=== PATIENT | male | born 1955 | race Caucasian/White ===

== ENCOUNTER 2017-06-15 10:35 | Inpatient (IN) | payer OTHER ==
[2017-06-15 10:46] VITALS: BMI 16.9
--- NOTE | 2017-06-15 13:45 | HP ---
CIWA Score - CIWA Score Nausea/Vomitin (diarrhea) Muscle Tremors: 4-Moderate,w/Arms Extend Anxiety: 4-Mod. Anxious/Guarded Agitation: 4-Moderately Restless Paroxysmal Sweats: 3 Orientation: 0-Oriented Tacttile Disturbances: 0-None Auditory Disturbances: 0-None Visual Disturbances: 3-Moderate Sensitivity Headache: 0-None Present CIWA-Ar Total Score: 21 Admission ROS BHS - HPI Chief Complaint: 61 years old male with a long hx of alcoholism admitted for detox. Pt has a history of previous detox in 2009. Longest sobriety was for 2 years. Allergies/Adverse Reactions: Allergies Allergy/AdvReac Type Severity Reaction Status Date / Time No Known Allergies Allergy Verified 06/15/17 11:25 History of Present Illness: Alcohol withdrawal Exam Limitations: No Limitations - Ebola screening Have you traveled outside of the country in the last 21 days: No Have you had contact with anyone from an Ebola affected area: No Have you been sick,other than usual withdrawal symptoms: No Do you have a fever: No - Review of Systems Constitutional: Chills, Diaphoresis, Malaise, Night Sweats EENT: reports: Blurred Vision, Tearing Respiratory: reports: Other (Phlegm from smoking) Cardiac: reports: No Symptoms Reported GI: reports: Diarrhea, Poor Appetite, Abdominal cramping : reports: No Symptoms Reported Musculoskeletal: reports: Muscle Weakness Integumentary: reports: Dryness Neuro: reports: Tingling, Tremors Endocrine: reports: Excessive Sweating, Unexplained Weight Loss (Poor diet) Hematology: reports: No Symptoms Reported Psychiatric: reports: Orientated x3, Anxious, Depressed Other Systems: Reviewed and Negative Patient History - Patient Medical History Hx Anemia: Yes Hx Asthma: No Hx Chronic Obstructive Pulmonary Disease (COPD): No Hx Cancer: No Hx Cardiac Disorders: No Hx Congestive Heart Failure: No Hx Hypertension: Yes Hx Hypercholesterolemia: No Hx Pacemaker: No HX Cerebrovascular Accident: No Hx Seizures: No Hx Diabetes: No Hx Gastrointestinal Disorders: No Hx Liver Disease: No Hx Genitourinary Disorders: No Hx Sexually Transmitted Disorders: No Hx Renal Disease (ESRD): No Hx Thyroid Disease: No Hx Human Immunodeficiency Virus (HIV): No (negative 2015) Hx Hepatitis C: Yes (treated with harvoni and undetected) Hx Depression: Yes Hx Suicide Attempt: No Hx Bipolar Disorder: Yes (on meds) Hx Schizophrenia: No - Patient Surgical History Past Surgical History: No - PPD History Previous Implant?: Yes Documented Results: Negative w/o proof PPD to be Administered?: Yes - Reproductive History Patient is a Female of Child Bearing Age (11 -55 yrs old): (Male) - Smoking Cessation Smoking history: Current every day smoker Have you smoked in the past 12 months: Yes Aproximately how many cigarettes per day: 7 Hx Chewing Tobacco Use: No Initiated information on smoking cessation: Yes 'Breaking Loose' booklet given: 06/15/17 - Substance & Tx. History Hx Alcohol Use: Yes Substance Use Type: Alcohol Hx Substance Use Treatment: Yes ( on MMTP at [facility]) - Substances Abused Alcohol Route: Oral Frequency: Daily Amount used: beer(10 cans-24 oz), /vodka (1/2 pint) Age of first use: 15 Date of Last Use: 06/14/17 Family Disease History - Family Disease History Family Disease History: CA: Father (leukemia- ), Other: Mother (Liver cirrhosis- ) Admission Physical Exam [facility] - Vital Signs Vital Signs: Vital Signs - 24 hr 06/15/17 10:44 Temperature 98.3 F Pulse Rate 97 H Respiratory 18 Rate Blood Pressure 129/88 - Physical General Appearance: Yes: No Apparent Distress, Appropriately Dressed, Moderate Distress, Sweating HEENTM: Yes: AYANNA, Nasal Congestion Respiratory: Yes: Lungs Clear, Normal Breath Sounds, No Respiratory Distress Neck: Yes: Supple Breast: Yes: Breast Exam Deferred Cardiology: Yes: Regular Rhythm, Regular Rate, S1, S2 Abdominal: Yes: Normal Bowel Sounds, Non Tender, Soft Genitourinary: Yes: Within Normal Limits Back: Yes: Muscle Spasm Musculoskeletal: Yes: Muscle Pain Extremities: Yes: Normal Inspection Neurological: Yes: Fully Oriented, Alert Integumentary: Yes: Diaphoresis Lymphatic: Yes: Within Normal Limits - Diagnostic (1) Alcohol dependence with uncomplicated withdrawal Current Visit: Yes Status: Acute (2) Methadone maintenance therapy patient Current Visit: Yes Status: Chronic Comment: Patient on MMTP with [facility]. Verified by Ms. Danielle Gamble (3) Hypertension Current Visit: Yes Status: Chronic Qualifiers: Hypertension type: essential hypertension Qualified Code(s): I10 - Essential (primary) hypertension; I10 - Essential (primary) hypertension; I10 - Essential (primary) hypertension (4) Anemia Current Visit: Yes Status: Chronic (5) Hepatitis C Current Visit: Yes Status: Chronic Qualifiers: Hepatic coma status: without hepatic coma Cleared for Admission [facility] - Detox or Rehab [facility] Level of Care: Medically Managed Detox Regimen/Protocol: Librium [facility] Breath Alcohol Content Breath Alcohol Content: 0 Urine Drug Screen - Results Drug Screen Negative: No Urine Drug Screen Results: BZO-Benzodiazepines, MTD-Methadone
[2017-06-15] MEDS ORDERED: METHADONE HCL 10 MG TABLET (FOR DETOX USE ONLY) PO ONE ×2 (14:21→23:00)
[2017-06-15] MEDS ORDERED: guaiFENesin/D-METHORPHAN HB 10 ML UNIT-DOSE CUPS PO PRN (14:21)
[2017-06-15] MEDS ORDERED: MAGNESIUM HYDROX 2400MG/30ML ORAL SUSPENSION 30 ML CUP PO PRN (14:21)
[2017-06-15] MEDS ORDERED: diphenhydrAMINE HCL 50 MG CAPSULE PO PRN (14:21)
[2017-06-15] MEDS ORDERED: ACETAMINOPHEN 325 MG TABLET (FP) PO PRN (14:21)
[2017-06-15] MEDS ORDERED: MENTHOL/PHENOL 1 EACH UD MM PRN (14:21)
[2017-06-15] MEDS ORDERED: MAGNESIUM CITRATE 300 ML BOTTLE PO PRN (14:21)
[2017-06-15] MEDS ORDERED: P-EPHED 60MG/TRIPROLIDI 2.5MG TABLET PO PRN (14:21)
[2017-06-15] MEDS ORDERED: hydrOXYzine PAMOATE 50 MG CAPSULE (FP) PO PRN (14:21)
[2017-06-15] MEDS ORDERED: NICOTINE POLACRILEX 2 MG GUM BUC PRN (14:21)
[2017-06-15] MEDS ORDERED: LOPERAMIDE HCL 2 MG CAPSULE PO PRN (14:21)
[2017-06-15] MEDS ORDERED: IBUPROFEN 400 MG TABLET (FP) PO PRN (14:21)
[2017-06-15] MEDS ORDERED: METHADONE HCL 10 MG TABLET PO ONE (14:47)
[2017-06-15] MEDS ORDERED: PATIENT'S OWN MEDICATION (NON-FORMULARY) (Cholecalciferol (Vitamin D3) [Vitamin D3] 50,000 PO SCH (15:00)
[2017-06-15] MEDS ORDERED: METHADONE 80 MG, METHADONE 10 MG PO ONE (15:00)
[2017-06-15] MEDS ORDERED: METHADONE HCL 10 MG TABLET ONE (15:32)
[2017-06-15] MEDS ORDERED: METHADONE HCL 40 MG DISPERSABLE TABLET ONE (15:33)
[2017-06-15] MEDS: chlordiazePOXIDE HCL 25 MG CAPSULE PO PRN ×2 (15:38→19:44)
[2017-06-15 17:11] LABS: MCH 34.3 pg (25.7-33.7); MCHC 33.6 g/dl (32.0-35.9); MEAN PLT VOLUME 10.4 fl (7.5-11.1); PLATELET COUNT 185 K/MM3 (134-434); WHITE BLOOD COUNT 5.2 K/mm3 (4.0-10.0)
[2017-06-15 17:15] LABS: URINE APPEARANCE CLEAR; URINE BILIRUBIN NEGATIVE (NEGATIVE); URINE BLOOD NEGATIVE (NEGATIVE); URINE COLOR YELLOW; URINE GLUCOSE (UA) NEGATIVE (NEGATIVE); URINE KETONE 1+ (NEGATIVE); URINE NITRITE NEGATIVE (NEGATIVE); URINE PROTEIN NEGATIVE (NEGATIVE); URINE UROBILINOGEN NEGATIVE mg/dL (0.2-1.0)
[2017-06-15] MEDS: chlordiazePOXIDE HCL 25 MG CAPSULE PO SCH ×2 (17:15→22:02)
[2017-06-15 17:24] LABS: ALBUMIN 3.9 g/dl (3.4-5.0); ANION GAP 8 (8-16); CALCIUM 8.9 mg/dL (8.5-10.1); CO2 27 mmol/L (21-32); GLUCOSE,RANDOM 226 mg/dL (74-106); SGPT/ALT 19 U/L (12-78)
[2017-06-15 17:27] LABS: ALK PHOS 84 U/L (45-117); BILIRUBIN,TOTAL 0.7 mg/dL (0.2-1.0); SGOT/AST 23 U/L (15-37); TOT PROT 7.6 g/dl (6.4-8.2)
--- NOTE | 2017-06-15 17:46 | CONSULT ---
[facility] Psychiatric Consult - Data Date of interview: 06/15/17 Admission source: [facility] Identifying data: Readmission to [facility] (patient was at [facility] in 2007) for alcohol and opioid dependence.Patient is single,a father of two,domiciled, unemployed and supported on Public Assistance. Substance Abuse History: Confirmed by patient in this session. Smoking Cessation. Smoking history: Current every day smoker. Have you smoked in the past 12 months: Yes. Aproximately how many cigarettes per day: 7. Hx Chewing Tobacco Use: No. Initiated information on smoking cessation: Yes. 'Breaking Loose' booklet given: 06/15/17. - Substance & Tx. History. Hx Alcohol Use: Yes. Substance Use Type: Alcohol. Hx Substance Use Treatment: Yes ( on MMTP at [facility]). - Substances Abused. Alcohol. Route: Oral. Frequency: Daily. Amount used: beer(10 cans-24 oz), /vodka (1/2 pint). Age of first use: 15. Date of Last Use: 06/14/17 Medical History: Hypertension and hepatitis C (treated). Psychiatric History: Admitted to the psychiatric inpatient service at [facility] years ago.Diagnosed with Bipolar Disorder.Prescribed seroquel 50 mg po bid + remeron 30 mg/hs.Mr Aquino gets psychiatric OPD care at [facility] in the [place].Patient denies history of suicide attempts. Physical/Sexual Abuse/Trauma History: No history. Additional Comment: Urine Drug Screen Results: BZO-Benzodiazepines, MTD- Methadone.Noted. Mental Status Exam - Mental Status Exam Alert and Oriented to: Time, Place, Person Cognitive Function: Good Patient Appearance: Well Groomed Mood: Hopeful, Euthymic Affect: Appropriate, Normal Range Patient Behavior: Appropriate (friendly), Cooperative Speech Pattern: Clear, Appropriate (bilingual) Voice Loudness: Normal Thought Process: Intact, Goal Oriented Thought Disorder: Not Present Hallucinations: Denies Suicidal Ideation: Denies Homicidal Ideation: Denies Insight/Judgement: Poor Sleep: Poorly, Difficulty falling asleep Appetite: Good Muscle strength/Tone: Normal Gait/Station: Normal Psychiatric Findings - Problem List ([place] 1, 2,3) (1) Alcohol dependence with uncomplicated withdrawal Current Visit: Yes Status: Acute (2) Opioid dependence on agonist therapy Current Visit: Yes Status: Acute (3) Nicotine dependence Current Visit: Yes Status: Acute (4) Substance induced mood disorder Current Visit: Yes Status: Acute (5) Bipolar disorder Current Visit: Yes Status: Chronic Comment: Self-report. (6) Anemia Current Visit: Yes Status: Chronic (7) Hepatitis C Current Visit: Yes Status: Chronic Qualifiers: Hepatic coma status: without hepatic coma (8) Hypertension Current Visit: Yes Status: Chronic Qualifiers: Hypertension type: essential hypertension Qualified Code(s): I10 - Essential (primary) hypertension; I10 - Essential (primary) hypertension; I10 - Essential (primary) hypertension (9) Insomnia Current Visit: Yes Status: Acute - Initial Treatment Plan Initial Treatment Plan: Psychoeducation.Detoxification.Medications : seroquel 50 mg po bid + remeron 15 mg po hs (reduced).Side effects/benefits discussed with patient.He agrees with the proposed careplan.Observation.
[2017-06-15] MEDS: NICOTINE 14 MG/24 HOURS TOPICAL PATCH TD SCH (18:50)
[2017-06-15] MEDS: MAG HYDROX/AL HYDROX/SIMETH 30 ML UNIT-DOSE CUP PO PRN (20:29)
[2017-06-15 21:50] LABS: URINE LEUK ESTERASE TRACE (NEGATIVE)
[2017-06-15] MEDS: MIRTAZAPINE 15 MG TABLET (FP) PO SCH (22:03)
[2017-06-15] MEDS: QUEtiapine FUMARATE 50 MG TABLET PO SCH (22:03)
[2017-06-15] MEDS: THIAMINE HCL 100 MG TABLET (FP) PO SCH (22:03)
[2017-06-15 23:54] LABS: SICKLE CELL SCREEN NEGATIVE (NEGATIVE)
[2017-06-16] MEDS ORDERED: METHADONE HCL 10 MG TABLET ONE (05:30)
[2017-06-16] MEDS ORDERED: METHADONE HCL 40 MG DISPERSABLE TABLET ONE (05:31)
[2017-06-16] MEDS: METHADONE 80 MG, METHADONE 10 MG PO SCH (05:49)
[2017-06-16] MEDS: chlordiazePOXIDE HCL 25 MG CAPSULE PO PRN (05:49)
[2017-06-16] MEDS ORDERED: METHADONE HCL 10 MG TABLET PO SCH (06:00)
[2017-06-16] MEDS: chlordiazePOXIDE HCL 25 MG CAPSULE PO SCH ×4 (06:45→22:26)
[2017-06-16] MEDS ORDERED: NICOTINE 14 MG/24 HOURS TOPICAL PATCH TD SCH (10:00)
[2017-06-16] MEDS ORDERED: METHADONE HCL 10 MG TABLET (FOR DETOX USE ONLY) PO SCH (10:00)
[2017-06-16] MEDS ORDERED: ERGOCALCIFEROL (VITAMIN D2) 50,000 UNIT CAPSULE (FP) PO SCH (10:00)
--- NOTE | 2017-06-16 10:06 | PN ---
[facility] CIWA - CIWA Score Nausea/Vomitin-No Nausea/No Vomiting Muscle Tremors: 4-Moderate,w/Arms Extend Anxiety: 4-Mod. Anxious/Guarded Agitation: 3 Paroxysmal Sweats: 1-Minimal Palms Moist Orientation: 0-Oriented Tacttile Disturbances: 2-Mild Itch/Numbness/Burn Auditory Disturbances: 0-None Visual Disturbances: 0-None Headache: 0-None Present CIWA-Ar Total Score: 14 BHS Progress Note (SOAP) Subjective: ANXIETY,SWEATS,,FATIGUE. Objective: 06/16/17 10:06 Vital Signs Temperature 97.4 F L 06/16/17 09:39 Pulse Rate 87 06/16/17 09:39 Respiratory Rate 20 06/16/17 09:39 Blood Pressure 112/72 06/16/17 09:39 O2 Sat by Pulse Oximetry (%) Laboratory Last Values WBC Cancelled 06/15/17 15:00 Corrected WBC (auto) Cancelled 06/15/17 15:00 RBC Cancelled 06/15/17 15:00 Hgb Cancelled 06/15/17 15:00 Hct Cancelled 06/15/17 15:00 MCV Cancelled 06/15/17 15:00 MCH Cancelled 06/15/17 15:00 MCHC Cancelled 06/15/17 15:00 RDW Cancelled 06/15/17 15:00 Plt Count Cancelled 06/15/17 15:00 MPV Cancelled 06/15/17 15:00 Neutrophils % Cancelled 06/15/17 15:00 Lymphocytes % Cancelled 06/15/17 15:00 Monocytes % Cancelled 06/15/17 15:00 Eosinophils % Cancelled 06/15/17 15:00 Basophils % Cancelled 06/15/17 15:00 Platelet Estimate Cancelled 06/15/17 15:00 Platelet Comment Cancelled 06/15/17 15:00 Platelet Comment Cancelled 06/15/17 15:00 RBC Morphology Cancelled 06/15/17 15:00 Sickle Cell Screen Negative (NEGATIVE) 06/15/17 14:00 Sodium Cancelled 06/15/17 15:00 Potassium Cancelled 06/15/17 15:00 Chloride Cancelled 06/15/17 15:00 Carbon Dioxide Cancelled 06/15/17 15:00 Anion Gap Cancelled 06/15/17 15:00 BUN Cancelled 06/15/17 15:00 Creatinine Cancelled 06/15/17 15:00 Creat Clearance w eGFR Cancelled 06/15/17 15:00 Random Glucose Cancelled 06/15/17 15:00 Calcium Cancelled 06/15/17 15:00 Total Bilirubin Cancelled 06/15/17 15:00 AST Cancelled 06/15/17 15:00 ALT Cancelled 06/15/17 15:00 Alkaline Phosphatase Cancelled 06/15/17 15:00 Total Protein Cancelled 06/15/17 15:00 Albumin Cancelled 06/15/17 15:00 Urine Color Yellow 06/15/17 15:00 Urine Appearance Clear 06/15/17 15:00 Urine pH 6.0 (5.0-8.0) 06/15/17 15:00 Ur Specific [place] 1.010 (1.005-1.025) 06/15/17 15:00 Urine Protein Negative (NEGATIVE) 06/15/17 15:00 Urine Glucose (UA) Negative (NEGATIVE) 06/15/17 15:00 Urine Ketones 1+ (NEGATIVE) H 06/15/17 15:00 Urine Blood Negative (NEGATIVE) 06/15/17 15:00 Urine Nitrite Negative (NEGATIVE) 06/15/17 15:00 Urine Bilirubin Negative (NEGATIVE) 06/15/17 15:00 Urine Urobilinogen Negative mg/dL (0.2-1.0) 06/15/17 15:00 Ur Leukocyte Esterase Trace (NEGATIVE) H 06/15/17 15:00 Urine RBC 3-5 /hpf (0-3) 06/15/17 15:00 Urine WBC 3-5 (3-5) 06/15/17 15:00 Ur Epithelial Cells 0-3 /HPF 06/15/17 15:00 RPR Titer Cancelled 06/15/17 15:00 Assessment: 06/16/17 10:07 WITHDRAWAL SX Plan: CONTINUE DETOX
[2017-06-16] MEDS: QUEtiapine FUMARATE 50 MG TABLET PO SCH ×2 (10:07→22:26)
[2017-06-16] MEDS: NICOTINE 14 MG/24 HOURS TOPICAL PATCH TD SCH (10:07)
[2017-06-16] MEDS: amLODIPine BESYLATE 5 MG TABLET (FP) PO SCH (10:07)
[2017-06-16] MEDS: PRENATAL VITAMINS W/ FOLIC ACID TABLET (FP) PO SCH (10:07)
[2017-06-16] MEDS: FERROUS SO4 325 MG TABLET (FP) PO SCH (10:07)
--- NOTE | 2017-06-16 10:45 | EKG ---
Test Reason : Blood Pressure : / mmHG Vent. Rate : 069 BPM Atrial Rate : 069 BPM P-R Int : 134 ms QRS Dur : 084 ms QT Int : 392 ms P-R-T Axes : 080 -72 056 degrees QTc Int : 420 ms NORMAL SINUS RHYTHM LEFT AXIS DEVIATION ABNORMAL ECG NO PREVIOUS ECGS AVAILABLE Confirmed by BLU ESPARZA, JEAN ([id number]) on 06/16/2017 10:45:35 AM Referred By: Edson Solitario Confirmed By:JEAN HURT MD
[2017-06-16] MEDS ORDERED: FLU VACCINE QUAD 60 MCG/0.5 ML (MDV 17-18) IM ONE (12:00)
--- NOTE | 2017-06-16 13:11 | PN ---
[facility] Progress Note Note: NURSE URSULA MINOR CALLED TO REPORT ON PT WHO C/O FALL IN DAYROOM AND HIT HIS HEAD ON THE FLOOR. DURING INITIAL EVALUATION, PT STATES HE GOT A LITTLE DIZZY AND FELL. AT THIS TIME PT IS ALERT O X 3. AMBULATING WITH [facility] AND REQUESTING TO GET COFFEE FROM DAY ROOM. ALERT O X 3 HEAD: SLIGHT REDNESS AND SWELLING WITH PAIN TO RIGHT FOREHEAD; NO OPEN SKIN OR BLEEDING. LUNGS: CLEAR TO A/P CARDIAC: S1 S2; RRR; NO MURMUR Vital Signs Temperature 96.5 F L 06/16/17 13:00 Pulse Rate 91 H 06/16/17 13:00 Respiratory Rate 20 06/16/17 13:00 Blood Pressure 129/73 06/16/17 13:00 O2 Sat by Pulse Oximetry (%) BGM = 116 MG/DL PLAN:FALL PRECAUTION FALL PROTOCOL #1 ICE COMPRESS PRN BGM X 1 TRANSPORT PT TO [facility] BY AMBULANCE FOR EVALUATION PER FALL PROTOCOL #1 REQUIREMENT. SPOKE WITH ALINA LYMAN AT [facility] ER.
--- NOTE | 2017-06-16 17:56 | PN ---
[facility] Progress Note Note: patient returned from er with negative head ct as per fall #1 protocol denies headache, denies dizziness reports has heart burn zantac + cane continue detox
[2017-06-16] MEDS: MAG HYDROX/AL HYDROX/SIMETH 30 ML UNIT-DOSE CUP PO PRN (21:51)
[2017-06-16] MEDS: RANITIDINE HCL 150 MG TABLET (FP) PO SCH (22:26)
[2017-06-16] MEDS: THIAMINE HCL 100 MG TABLET (FP) PO SCH (22:26)
[2017-06-16] MEDS: MIRTAZAPINE 15 MG TABLET (FP) PO SCH (22:27)
[2017-06-17] MEDS ORDERED: METHADONE HCL 10 MG TABLET ONE (05:08)
[2017-06-17] MEDS ORDERED: METHADONE HCL 40 MG DISPERSABLE TABLET ONE (05:08)
[2017-06-17] MEDS: METHADONE 80 MG, METHADONE 10 MG PO SCH (05:25)
[2017-06-17] MEDS: chlordiazePOXIDE HCL 25 MG CAPSULE PO SCH ×2 (05:25→10:07)
--- NOTE | 2017-06-17 09:59 | PN ---
[facility] CIWA - CIWA Score Nausea/Vomitin-No Nausea/No Vomiting Muscle Tremors: 4-Moderate,w/Arms Extend Anxiety: 4-Mod. Anxious/Guarded Agitation: 4-Moderately Restless Paroxysmal Sweats: 1-Minimal Palms Moist Orientation: 0-Oriented Tacttile Disturbances: 3-Moderate Itch/Numb/Burn Auditory Disturbances: 0-None Visual Disturbances: 0-None Headache: 0-None Present CIWA-Ar Total Score: 16 BHS Progress Note (SOAP) Subjective: SLIGHT ANXIETY. PT OOB AND ALERT O X 3. EASILY NODS OFF WHILE STANDING BUT WIDE AWAKE WITH SLIGHTEST PROMPT. PT REMINDED TO REST IN BED WHEN NEEDED INSTEAD OF STANDING OR SITTING AND NODDING OFF. DENIES HEADACHE OR DIZZINESS. Objective: 06/17/17 09:56 Vital Signs Temperature 98.6 F 06/17/17 09:00 Pulse Rate 83 06/17/17 09:36 Respiratory Rate 16 06/17/17 09:36 Blood Pressure 105/69 06/17/17 09:36 O2 Sat by Pulse Oximetry (%) Laboratory Last Values WBC Cancelled 06/15/17 15:00 Corrected WBC (auto) Cancelled 06/15/17 15:00 RBC Cancelled 06/15/17 15:00 Hgb Cancelled 06/15/17 15:00 Hct Cancelled 06/15/17 15:00 MCV Cancelled 06/15/17 15:00 MCH Cancelled 06/15/17 15:00 MCHC Cancelled 06/15/17 15:00 RDW Cancelled 06/15/17 15:00 Plt Count Cancelled 06/15/17 15:00 MPV Cancelled 06/15/17 15:00 Neutrophils % Cancelled 06/15/17 15:00 Lymphocytes % Cancelled 06/15/17 15:00 Monocytes % Cancelled 06/15/17 15:00 Eosinophils % Cancelled 06/15/17 15:00 Basophils % Cancelled 06/15/17 15:00 Platelet Estimate Cancelled 06/15/17 15:00 Platelet Comment Cancelled 06/15/17 15:00 Platelet Comment Cancelled 06/15/17 15:00 RBC Morphology Cancelled 06/15/17 15:00 Sickle Cell Screen Negative (NEGATIVE) 06/15/17 14:00 Sodium Cancelled 06/15/17 15:00 Potassium Cancelled 06/15/17 15:00 Chloride Cancelled 06/15/17 15:00 Carbon Dioxide Cancelled 06/15/17 15:00 Anion Gap Cancelled 06/15/17 15:00 BUN Cancelled 06/15/17 15:00 Creatinine Cancelled 06/15/17 15:00 Creat Clearance w eGFR Cancelled 06/15/17 15:00 POC Glucometer 116 UNITS (()) 06/16/17 13:46 Random Glucose Cancelled 06/15/17 15:00 Calcium Cancelled 06/15/17 15:00 Total Bilirubin Cancelled 06/15/17 15:00 AST Cancelled 06/15/17 15:00 ALT Cancelled 06/15/17 15:00 Alkaline Phosphatase Cancelled 06/15/17 15:00 Total Protein Cancelled 06/15/17 15:00 Albumin Cancelled 06/15/17 15:00 Urine Color Yellow 06/15/17 15:00 Urine Appearance Clear 06/15/17 15:00 Urine pH 6.0 (5.0-8.0) 06/15/17 15:00 Ur Specific [place] 1.010 (1.005-1.025) 06/15/17 15:00 Urine Protein Negative (NEGATIVE) 06/15/17 15:00 Urine Glucose (UA) Negative (NEGATIVE) 06/15/17 15:00 Urine Ketones 1+ (NEGATIVE) H 06/15/17 15:00 Urine Blood Negative (NEGATIVE) 06/15/17 15:00 Urine Nitrite Negative (NEGATIVE) 06/15/17 15:00 Urine Bilirubin Negative (NEGATIVE) 06/15/17 15:00 Urine Urobilinogen Negative mg/dL (0.2-1.0) 06/15/17 15:00 Ur Leukocyte Esterase Trace (NEGATIVE) H 06/15/17 15:00 Urine RBC 3-5 /hpf (0-3) 06/15/17 15:00 Urine WBC 3-5 (3-5) 06/15/17 15:00 Ur Epithelial Cells 0-3 /HPF 06/15/17 15:00 RPR Titer Cancelled 06/15/17 15:00 Hepatitis C Antibody >11.0 s/co ratio (0.0-0.9) H 06/15/17 14:00 CT SCAN HEAD RESULT NO EVIDENCE OF ACUTE IC BLEEDING OR SKULL FRACTURE. Assessment: 06/17/17 09:59 WITHDRAWAL SX Plan: CONTINUE DETOX
[2017-06-17] MEDS ORDERED: METHADONE HCL 5 MG TABLET (FOR DETOX USE ONLY) PO SCH (10:00)
[2017-06-17] MEDS: PRENATAL VITAMINS W/ FOLIC ACID TABLET (FP) PO SCH (10:07)
[2017-06-17] MEDS: QUEtiapine FUMARATE 50 MG TABLET PO SCH ×2 (10:07→22:40)
[2017-06-17] MEDS: RANITIDINE HCL 150 MG TABLET (FP) PO SCH ×2 (10:07→22:40)
[2017-06-17] MEDS: FERROUS SO4 325 MG TABLET (FP) PO SCH (10:07)
[2017-06-17] MEDS: amLODIPine BESYLATE 5 MG TABLET (FP) PO SCH (10:07)
[2017-06-17] MEDS: NICOTINE 14 MG/24 HOURS TOPICAL PATCH TD SCH (10:07)
[2017-06-17] MEDS: chlordiazePOXIDE 5 MG CAPSULE PO SCH ×2 (19:28→22:40)
[2017-06-17] MEDS: THIAMINE HCL 100 MG TABLET (FP) PO SCH (22:40)
[2017-06-17] MEDS: MIRTAZAPINE 15 MG TABLET (FP) PO SCH (22:40)
[2017-06-18] MEDS ORDERED: METHADONE HCL 10 MG TABLET ONE (04:47)
[2017-06-18] MEDS ORDERED: METHADONE HCL 40 MG DISPERSABLE TABLET ONE (04:47)
[2017-06-18] MEDS: chlordiazePOXIDE 5 MG CAPSULE PO SCH ×2 (06:06→10:27)
[2017-06-18] MEDS: METHADONE 80 MG, METHADONE 10 MG PO SCH (06:06)
[2017-06-18] MEDS: amLODIPine BESYLATE 5 MG TABLET (FP) PO SCH (10:27)
[2017-06-18] MEDS: PRENATAL VITAMINS W/ FOLIC ACID TABLET (FP) PO SCH (10:27)
[2017-06-18] MEDS: NICOTINE 14 MG/24 HOURS TOPICAL PATCH TD SCH (10:27)
[2017-06-18] MEDS: RANITIDINE HCL 150 MG TABLET (FP) PO SCH ×2 (10:27→22:22)
[2017-06-18] MEDS: FERROUS SO4 325 MG TABLET (FP) PO SCH (10:27)
[2017-06-18] MEDS: QUEtiapine FUMARATE 50 MG TABLET PO SCH ×2 (10:27→22:22)
--- NOTE | 2017-06-18 12:00 | PN ---
[facility]HS Progress Note (SOAP) Subjective: Sweating, Interrupted sleep, Diarrhea. Objective: PT. A & O X 2 (DISORIENTED ABOUT CURRENT LOCATION). 06/18/17 11:57 Vital Signs Temperature 97.4 F L 06/18/17 09:54 Pulse Rate 85 06/18/17 09:54 Respiratory Rate 16 06/18/17 09:54 Blood Pressure 114/79 06/18/17 09:54 O2 Sat by Pulse Oximetry (%) Laboratory Tests 06/15/17 06/15/17 06/15/17 14:00 14:00 14:00 WBC 5.2 Corrected WBC (auto) RBC 4.18 Hgb 14.4 Hct 42.7 MCV 102.0 H MCH 34.3 H MCHC 33.6 RDW 13.0 Plt Count 185 MPV 10.4 Neutrophils % Lymphocytes % Monocytes % Eosinophils % Basophils % Platelet Estimate Platelet Comment RBC Morphology Sickle Cell Screen Negative Sodium 135 L Potassium 4.2 Chloride 100 Carbon Dioxide 27 Anion Gap 8 BUN 11 Creatinine 1.0 Creat Clearance w eGFR > 60 POC Glucometer Random Glucose 226 H Hemoglobin A1c % Calcium 8.9 Total Bilirubin 0.7 AST 23 ALT 19 Alkaline Phosphatase 84 Total Protein 7.6 Albumin 3.9 Urine Color Urine Appearance Urine pH Ur Specific [place] Urine Protein Urine Glucose (UA) Urine Ketones Urine Blood Urine Nitrite Urine Bilirubin Urine Urobilinogen Ur Leukocyte Esterase Urine RBC Urine WBC Ur Epithelial Cells RPR Titer Hepatitis C Antibody >11.0 H 06/15/17 06/15/17 06/15/17 14:00 15:00 15:00 WBC Cancelled Corrected WBC (auto) Cancelled RBC Cancelled Hgb Cancelled Hct Cancelled MCV Cancelled MCH Cancelled MCHC Cancelled RDW Cancelled Plt Count Cancelled MPV Cancelled Neutrophils % Cancelled Lymphocytes % Cancelled Monocytes % Cancelled Eosinophils % Cancelled Basophils % Cancelled Platelet Estimate Cancelled Platelet Comment Cancelled RBC Morphology Cancelled Sickle Cell Screen Sodium Potassium Chloride Carbon Dioxide Anion Gap BUN Creatinine Creat Clearance w eGFR POC Glucometer Random Glucose Hemoglobin A1c % Calcium Total Bilirubin AST ALT Alkaline Phosphatase Total Protein Albumin Urine Color Yellow Urine Appearance Clear Urine pH 6.0 Ur Specific [place] 1.010 Urine Protein Negative Urine Glucose (UA) Negative Urine Ketones 1+ H Urine Blood Negative Urine Nitrite Negative Urine Bilirubin Negative Urine Urobilinogen Negative Ur Leukocyte Esterase Trace H Urine RBC 3-5 Urine WBC 3-5 Ur Epithelial Cells 0-3 RPR Titer Nonreactive Hepatitis C Antibody 06/15/17 06/15/17 06/16/17 15:00 15:00 13:46 WBC Corrected WBC (auto) RBC Hgb Hct MCV MCH MCHC RDW Plt Count MPV Neutrophils % Lymphocytes % Monocytes % Eosinophils % Basophils % Platelet Estimate Platelet Comment RBC Morphology Sickle Cell Screen Sodium Cancelled Potassium Cancelled Chloride Cancelled Carbon Dioxide Cancelled Anion Gap Cancelled BUN Cancelled Creatinine Cancelled Creat Clearance w eGFR Cancelled POC Glucometer 116 Random Glucose Cancelled Hemoglobin A1c % Calcium Cancelled Total Bilirubin Cancelled AST Cancelled ALT Cancelled Alkaline Phosphatase Cancelled Total Protein Cancelled Albumin Cancelled Urine Color Urine Appearance Urine pH Ur Specific [place] Urine Protein Urine Glucose (UA) Urine Ketones Urine Blood Urine Nitrite Urine Bilirubin Urine Urobilinogen Ur Leukocyte Esterase Urine RBC Urine WBC Ur Epithelial Cells RPR Titer Cancelled Hepatitis C Antibody 06/17/17 07:00 WBC Corrected WBC (auto) RBC Hgb Hct MCV MCH MCHC RDW Plt Count MPV Neutrophils % Lymphocytes % Monocytes % Eosinophils % Basophils % Platelet Estimate Platelet Comment RBC Morphology Sickle Cell Screen Sodium Potassium Chloride Carbon Dioxide Anion Gap BUN Creatinine Creat Clearance w eGFR POC Glucometer Random Glucose Hemoglobin A1c % 5.5 Calcium Total Bilirubin AST ALT Alkaline Phosphatase Total Protein Albumin Urine Color Urine Appearance Urine pH Ur Specific [place] Urine Protein Urine Glucose (UA) Urine Ketones Urine Blood Urine Nitrite Urine Bilirubin Urine Urobilinogen Ur Leukocyte Esterase Urine RBC Urine WBC Ur Epithelial Cells RPR Titer Hepatitis C Antibody LABS NOTED. RESULTS OF HGB A1C AND FASTING BGM NOTED. PATIENT PREVIOUSLY COMPLETED TREATMENT FOR HEP C. 06/18/17 11:58 Assessment: 06/18/17 11:58 WITHDRAWAL SYMPTOMS. Plan: CONTINUE DETOX. PRN IMMODIUM FOR DIARRHEA. INCREASE DAILY PO FLUID INTAKE.
[2017-06-18] MEDS: chlordiazePOXIDE HCL 10 MG CAPSULE PO SCH ×2 (17:16→22:22)
[2017-06-18 18:05] LABS: URINE APPEARANCE CLEAR; URINE BILIRUBIN NEGATIVE (NEGATIVE); URINE BLOOD NEGATIVE (NEGATIVE); URINE COLOR LTYELLOW; URINE GLUCOSE (UA) NEGATIVE (NEGATIVE); URINE KETONE NEGATIVE (NEGATIVE); URINE NITRITE NEGATIVE (NEGATIVE); URINE PROTEIN NEGATIVE (NEGATIVE); URINE UROBILINOGEN NEGATIVE mg/dL (0.2-1.0)
[2017-06-18 21:38] LABS: URINE LEUK ESTERASE Negative (NEGATIVE)
[2017-06-18] MEDS: MIRTAZAPINE 15 MG TABLET (FP) PO SCH (22:22)
[2017-06-18] MEDS: THIAMINE HCL 100 MG TABLET (FP) PO SCH (22:22)
[2017-06-18] MEDS: MAG HYDROX/AL HYDROX/SIMETH 30 ML UNIT-DOSE CUP PO PRN (23:30)
[2017-06-19] MEDS ORDERED: METHADONE HCL 10 MG TABLET ONE (03:50)
[2017-06-19] MEDS ORDERED: METHADONE HCL 40 MG DISPERSABLE TABLET ONE (03:51)
[2017-06-19] MEDS: chlordiazePOXIDE HCL 10 MG CAPSULE PO SCH (05:10)
[2017-06-19] MEDS: METHADONE 80 MG, METHADONE 10 MG PO SCH (05:11)
[2017-06-19 06:36] VITALS: BP 124/88; PULSE 77; TEMP 97
[2017-06-19] MEDS ORDERED: METHADONE HCL 10 MG TABLET (FOR DETOX USE ONLY) PO SCH (10:00)
--- NOTE | 2017-06-19 22:02 | DS ---
[facility] Detox Discharge Summary Admission Date: 06/15/17 Discharge Date: 06/19/17 - History Present History: Alcohol Dependence, MMTP Additional Comments: PATIENT RETURNING TO [facility] FOR AFTERCARE. PATIENT ALSO ADVISED TO CONSIDER LOCAL 12-STEP / AA SUPPORT GROUPS. PATIENT WAS DISCHARGED FROM DETOX UNIT IN STABLE MEDICAL CONDITION. Pertinent Past History: History of Anemia, Depression, Bipolar Disorder, Hep C (Treated), MMTP, History of Head Injury, HTN, Insomnia. - Physical Exam Results Vital Signs: Vital Signs Temperature 97 F L 06/19/17 06:35 Pulse Rate 77 06/19/17 06:35 Respiratory Rate 16 06/19/17 06:35 Blood Pressure 124/88 06/19/17 06:35 O2 Sat by Pulse Oximetry (%) Pertinent Admission Physical Exam Findings: WITHDRAWAL SYMPTOMS. Laboratory Tests 06/15/17 06/15/17 06/15/17 14:00 14:00 14:00 WBC 5.2 Corrected WBC (auto) RBC 4.18 Hgb 14.4 Hct 42.7 MCV 102.0 H MCH 34.3 H MCHC 33.6 RDW 13.0 Plt Count 185 MPV 10.4 Neutrophils % Lymphocytes % Monocytes % Eosinophils % Basophils % Platelet Estimate Platelet Comment RBC Morphology Sickle Cell Screen Negative Sodium 135 L Potassium 4.2 Chloride 100 Carbon Dioxide 27 Anion Gap 8 BUN 11 Creatinine 1.0 Creat Clearance w eGFR > 60 POC Glucometer Random Glucose 226 H Hemoglobin A1c % Calcium 8.9 Total Bilirubin 0.7 AST 23 ALT 19 Alkaline Phosphatase 84 Total Protein 7.6 Albumin 3.9 Urine Color Urine Appearance Urine pH Ur Specific [place] Urine Protein Urine Glucose (UA) Urine Ketones Urine Blood Urine Nitrite Urine Bilirubin Urine Urobilinogen Ur Leukocyte Esterase Urine RBC Urine WBC Ur Epithelial Cells RPR Titer Hepatitis C Antibody >11.0 H 06/15/17 06/15/17 06/15/17 14:00 15:00 15:00 WBC Cancelled Corrected WBC (auto) Cancelled RBC Cancelled Hgb Cancelled Hct Cancelled MCV Cancelled MCH Cancelled MCHC Cancelled RDW Cancelled Plt Count Cancelled MPV Cancelled Neutrophils % Cancelled Lymphocytes % Cancelled Monocytes % Cancelled Eosinophils % Cancelled Basophils % Cancelled Platelet Estimate Cancelled Platelet Comment Cancelled RBC Morphology Cancelled Sickle Cell Screen Sodium Potassium Chloride Carbon Dioxide Anion Gap BUN Creatinine Creat Clearance w eGFR POC Glucometer Random Glucose Hemoglobin A1c % Calcium Total Bilirubin AST ALT Alkaline Phosphatase Total Protein Albumin Urine Color Yellow Urine Appearance Clear Urine pH 6.0 Ur Specific [place] 1.010 Urine Protein Negative Urine Glucose (UA) Negative Urine Ketones 1+ H Urine Blood Negative Urine Nitrite Negative Urine Bilirubin Negative Urine Urobilinogen Negative Ur Leukocyte Esterase Trace H Urine RBC 3-5 Urine WBC 3-5 Ur Epithelial Cells 0-3 RPR Titer Nonreactive Hepatitis C Antibody 06/15/17 06/15/17 06/16/17 15:00 15:00 13:46 WBC Corrected WBC (auto) RBC Hgb Hct MCV MCH MCHC RDW Plt Count MPV Neutrophils % Lymphocytes % Monocytes % Eosinophils % Basophils % Platelet Estimate Platelet Comment RBC Morphology Sickle Cell Screen Sodium Cancelled Potassium Cancelled Chloride Cancelled Carbon Dioxide Cancelled Anion Gap Cancelled BUN Cancelled Creatinine Cancelled Creat Clearance w eGFR Cancelled POC Glucometer 116 Random Glucose Cancelled Hemoglobin A1c % Calcium Cancelled Total Bilirubin Cancelled AST Cancelled ALT Cancelled Alkaline Phosphatase Cancelled Total Protein Cancelled Albumin Cancelled Urine Color Urine Appearance Urine pH Ur Specific [place] Urine Protein Urine Glucose (UA) Urine Ketones Urine Blood Urine Nitrite Urine Bilirubin Urine Urobilinogen Ur Leukocyte Esterase Urine RBC Urine WBC Ur Epithelial Cells RPR Titer Cancelled Hepatitis C Antibody 06/17/17 06/18/17 07:00 15:00 WBC Corrected WBC (auto) RBC Hgb Hct MCV MCH MCHC RDW Plt Count MPV Neutrophils % Lymphocytes % Monocytes % Eosinophils % Basophils % Platelet Estimate Platelet Comment RBC Morphology Sickle Cell Screen Sodium Potassium Chloride Carbon Dioxide Anion Gap BUN Creatinine Creat Clearance w eGFR POC Glucometer Random Glucose Hemoglobin A1c % 5.5 Calcium Total Bilirubin AST ALT Alkaline Phosphatase Total Protein Albumin Urine Color Ltyellow Urine Appearance Clear Urine pH 6.0 Ur Specific [place] <= 1.005 Urine Protein Negative Urine Glucose (UA) Negative Urine Ketones Negative Urine Blood Negative Urine Nitrite Negative Urine Bilirubin Negative Urine Urobilinogen Negative Ur Leukocyte Esterase Negative Urine RBC Urine WBC Ur Epithelial Cells RPR Titer Hepatitis C Antibody LABS NOTED. - Treatment Hospital Course: Detox Protocol Followed, Detoxed Safely, Responded well, Discharged Condition Good - Medication Discharge Medications: Ambulatory Orders Cholecalciferol (Vitamin D3) [Vitamin D3] 50,000 unit PO WEEKLY 06/15/17 Ferrous Sulfate [Feosol] 325 mg PO DAILY 06/15/17 Mirtazapine [Remeron -] 30 mg PO HS #30 tablet 06/15/17 Multivitamins [Tab-A-Vit -] 1 tab PO DAILY 06/15/17 Quetiapine Fumarate [Seroquel -] 50 mg PO BID #60 tablet 06/15/17 Amlodipine Besylate 5 mg PO DAILY #30 mg 06/19/17 - Diagnosis (1) Alcohol dependence with uncomplicated withdrawal Status: Acute (2) Head injury Status: Acute Qualifiers: Encounter type: initial encounter Qualified Code(s): S09.90XA - Unspecified injury of head, initial encounter; S09.90XA - Unspecified injury of head, initial encounter (3) Insomnia Status: Acute Qualifiers: Insomnia type: unspecified Qualified Code(s): G47.00 - Insomnia, unspecified; G47.00 - Insomnia, unspecified (4) Nicotine dependence Status: Chronic Qualifiers: Nicotine product type: cigarettes Substance use status: in withdrawal Qualified Code(s): F17.213 - Nicotine dependence, cigarettes, with withdrawal; F17.213 - Nicotine dependence, cigarettes, with withdrawal (5) Opioid dependence on agonist therapy Status: Chronic (6) Substance induced mood disorder Status: Acute (7) Anemia Status: Chronic Qualifiers: Anemia type: iron deficiency Iron deficiency anemia type: unspecified iron deficiency Qualified Code(s): D50.9 - Iron deficiency anemia, unspecified; D50.9 - Iron deficiency anemia, unspecified (8) Bipolar disorder Status: Chronic Qualifiers: Active/Remission status: remission status unspecified Qualified Code (s): F31.9 - Bipolar disorder, unspecified; F31.9 - Bipolar disorder, unspecified; F31.9 - Bipolar disorder, unspecified; F31.9 - Bipolar disorder, unspecified (9) Hepatitis C Status: Chronic Qualifiers: Viral hepatitis chronicity: chronic Hepatic coma status: without hepatic coma Qualified Code(s): B18.2 - Chronic viral hepatitis C; B18.2 - Chronic viral hepatitis C; B18.2 - Chronic viral hepatitis C; B18.2 - Chronic viral hepatitis C (10) Hypertension Status: Chronic Qualifiers: Hypertension type: essential hypertension Qualified Code(s): I10 - Essential (primary) hypertension; I10 - Essential (primary) hypertension; I10 - Essential (primary) hypertension (11) Methadone maintenance therapy patient Status: Chronic - AMA Did Patient Leave Against Medical Advice: No
[2017-06-20] MEDS ORDERED: METHADONE HCL 5 MG TABLET (FOR DETOX USE ONLY) PO SCH (06:00)
[2017-06-22] MEDS ORDERED: ERGOCALCIFEROL (VITAMIN D2) 50,000 UNIT CAPSULE (FP) PO SCH (10:00)
== END 2017-06-19 09:19 | disposition home or self-care (01) | DRG 773 ==
LOC: YASAS 10:35 → Y3N 13:02
PROVIDERS: ADMIT Internal Medicine; ATTEND Internal Medicine
PROC: HZ2ZZZZ Detoxification Services for Substance Abuse Treatment (ICD-10-PCS; principal; 2017-06-15)
DX: F10.230 Alcohol dependence with withdrawal, uncomplicated (principal); F11.20 Opioid dependence, uncomplicated; F17.213 Nicotine dependence, cigarettes, with withdrawal; F19.24 Other psychoactive substance dependence with psychoactive substance-induced mood disorder; F31.9 Bipolar disorder, unspecified; I10 Essential (primary) hypertension; G47.00 Insomnia, unspecified; D50.9 Iron deficiency anemia, unspecified; B18.2 Chronic viral hepatitis C; S09.90XA Unspecified injury of head, initial encounter; W18.39XA Other fall on same level, initial encounter; Y93.9 Activity, unspecified; Y92.238 Other place in hospital as the place of occurrence of the external cause
CPT/HCPCS: 36415; 80053; 81003; 81015; 83036; 85027; 85660; 86593; 86803; 87522; 90688; 93005; 93010; G0008

== ENCOUNTER 2017-06-16 14:12 | Emergency (ER) | payer OTHER ==
--- NOTE | 2017-06-16 14:38 | PDOC ---
History of Present Illness - General Stated Complaint: FALL Time Seen by Provider: 06/16/17 14:22 History Source: Patient - History of Present Illness Occurred: reports: just prior to arrival Pain Location: reports: face Method of Injury: Yes: fall Past History - Past Medical History Allergies/Adverse Reactions: Allergies Allergy/AdvReac Type Severity Reaction Status Date / Time No Known Allergies Allergy Verified 06/15/17 11:25 Home Medications: Ambulatory Orders Amlodipine Besylate 5 mg PO DAILY 06/15/17 Cholecalciferol (Vitamin D3) [Vitamin D3] 50,000 unit PO WEEKLY 06/15/17 Ferrous Sulfate [Feosol] 325 mg PO DAILY 06/15/17 Methadone [Dolophine -] 90 mg PO DAILY 06/15/17 Mirtazapine [Remeron -] 30 mg PO HS 06/15/17 Mirtazapine [Remeron -] 30 mg PO HS #30 tablet 06/15/17 Multivitamins [Tab-A-Vit -] 1 tab PO DAILY 06/15/17 Quetiapine Fumarate [Seroquel -] 50 mg PO BID 06/15/17 Quetiapine Fumarate [Seroquel -] 50 mg PO BID #60 tablet 06/15/17 Anemia: Yes Asthma: No Cancer: No Cardiac Disorders: No CVA: No COPD: No CHF: No Diabetes: No GI Disorders: No Disorders: No HTN: Yes Hypercholesterolemia: No Kidney Stones: No Liver Disease: No Seizures: No Thyroid Disease: No - Reproductive History Testicular Surgery: No - Suicide/Smoking/Psychosocial Hx Smoking History: Current every day smoker Have you smoked in the past 12 months: Yes Number of Cigarettes Smoked Daily: 7 'Breaking Loose' booklet given: 06/15/17 Hx Alcohol Use: Yes Substance Use Type: Alcohol Hx Substance Use Treatment: Yes ( on MMTP at [facility]) Trauma Specific PMHX - Complaint Specific PMHX Arthritis: No Review of Systems - Review of Systems Constitutional: No: Chills, Fever Respiratory: No: Shortness of Breath Cardiac (ROS): Yes: Lightheadedness. No: Chest Pain, Palpitations, Syncope ABD/GI: No: Nausea, Vomiting Neurological: Yes: Dizziness. No: Headache *Physical Exam - Physical Exam General Appearance: Yes: Appropriately Dressed. No: Apparent Distress HEENT: positive: Normal Voice, Other (hematoma to mid forehead) Neck: positive: Supple Respiratory/Chest: positive: Lungs Clear, Normal Breath Sounds. negative: Respiratory Distress Cardiovascular: positive: Regular Rate, S1, S2 Gastrointestinal/Abdominal: positive: Soft. negative: Tender Integumentary: positive: Dry, Warm Neurologic: positive: Fully Oriented, Alert, Normal Mood/Affect, Motor Strength 5/ ED Treatment Course - RADIOLOGY Radiology Studies Ordered: Category Date Time Status HEAD CT WITHOUT CONTRAST [CT] Stat CT Scan 06/16/17 14:31 Ordered Medical Decision Making - Medical Decision Making 06/16/17 14:33 61 yo M, h/o ETOH abuse, on methadone, HCV, sent from [facility] for fall w/ head injury. Patient states while sitting in a chair, he became lightheaded and fell striking forehead against ground. Denies LOC and no headache, nausea, vomiting, visual changes, or focal weakness at this time. Patient states he is not on any blood thinners. Denies chest pain or shortness of breath. No history of similar dizziness in the past. See exam Fall w/ head injury in the setting of dizziness in pt w/ h/o ETOH abuse Does not appear intoxicated at this time No neuro deficits -CTH -labs/ekg given dizziness 06/16/17 14:39 06/16/17 15:54 Pt refuses EKG and blood work. States dizziness has resolved and does not want further workup. CT head negative. Will discharge back to facility at this time *DC/Admit/Observation/Transfer Diagnosis at time of Disposition: Injury of head Qualifiers: Encounter type: initial encounter Qualified Code(s): S09.90XA - Unspecified injury of head, initial encounter; S09.90XA - Unspecified injury of head, initial encounter - Discharge Dispostion Disposition: HOME Condition at time of disposition: Good - Patient Instructions Printed Discharge Instructions: DI for Closed Head Injury Additional Instructions: The CAT scan was normal today. The ER wanted to do an EKG and blood work given dizziness at facility, which you have declined today.
[2017-06-16 14:39] VITALS: BP 131/85; PULSE 82; TEMP 97.8; BMI 16.9
== END 2017-06-16 17:05 | disposition short-term general hospital (02) ==
LOC: JER 14:12
DX: S09.90XA Unspecified injury of head, initial encounter (principal); W07.XXXA Fall from chair, initial encounter; Y93.89 Activity, other specified; F10.120 Alcohol abuse with intoxication, uncomplicated; Y92.238 Other place in hospital as the place of occurrence of the external cause; I10 Essential (primary) hypertension; D64.9 Anemia, unspecified; F17.210 Nicotine dependence, cigarettes, uncomplicated
CPT/HCPCS: 70450-TC; 99281-25

== ENCOUNTER 2018-10-03 09:22 | Inpatient (IN) | payer OTHER | END 2018-10-03 23:50 | disposition left against medical advice (07) | LOC: YASAS 09:22 → Y6N 19:46 ==

== ENCOUNTER 2018-11-22 23:17 | Inpatient (IN) | payer OTHER ==
[2018-11-22 23:42] VITALS: BMI 20.1
--- NOTE | 2018-11-23 00:29 | HP ---
"CIWA Score Nausea/Vomitin-No Nausea/No Vomiting Muscle Tremors: 4-Moderate,w/Arms Extend Anxiety: 3 Agitation: 1-Slight > Activity Paroxysmal Sweats: 3 (Increeased facial moisture) Orientation: 1-Uncertain about Date Tacttile Disturbances: 0-None Auditory Disturbances: 0-None Visual Disturbances: 0-None Headache: 0-None Present CIWA-Ar Total Score: 12 - Admission Criteria OASAS Guidelines: Admission for Medically Managed Detox: Requires at least one of the followin. CIWA greater than 12 2. Seizures within the past 24 hours 3. Delirium tremens within the past 24 hours 4. Hallucinations within the past 24 hours 5. Acute intervention needed for co occurring medical disorder 6. Acute intervention needed for co occurring psychiatric disorder 7. Severe withdrawal that cannot be handled at a lower level of care (continued vomiting, continued diarrhea, abnormal vital signs) requiring intravenous medication and/or fluids 8. Patient presents the following: CIWA greater than 12 (Patient received Librium at [facility] and then transferreed to [facility] for detox.) Admission Criteria Met: Admission criteria met Admission ROS S - [facility] Chief Complaint: Here w/ alcohol withdrawal. Allergies/Adverse Reactions: Allergies Allergy/AdvReac Type Severity Reaction Status Date / Time No Known Allergies Allergy Verified 06/15/17 11:25 History of Present Illness: Here for alcohol detox. Was discharged from [facility] @ 2000 hrs today and brought to [facility] for alcohol detox. States IV was in (L) arm. Hx opiate use disorder. Currently on VIP - MMTP. States current dose is methadone 100 mg. Need verification. Alcohol use began at age 15. Nicotine use began at age 13. Longest sobriety 1 year while attending groups. PMHx: States stopped HTN meds -B/P WNL. (L) upper arm pain x 1 week. Denies fall/injury MHHx: Denies Depression. Denies thoughts of harming self or others. Search Terms: Antonio Aquino, 1955 Search Date: 11/23/2018 01:19:04 AM The Drug Utilization Report below displays all of the controlled substance prescriptions, if any, that your patient has filled in the last twelve months. The information displayed on this report is compiled from pharmacy submissions to the Department, and accurately reflects the information as submitted by the pharmacies. This report was requested by: Dalia Orozco | Reference #: [id number] There are no results for the search terms that you entered Exam Limitations: No Limitations - Ebola screening Have you traveled outside of the country in the last 21 days: No (N) Have you had contact with anyone from an Ebola affected area: No Have you been sick,other than usual withdrawal symptoms: No Do you have a fever: No - Review of Systems Constitutional: Chills, Diaphoresis, Changes in sleep (Difficulty falling asleep and staying asleep.) EENT: reports: Blurred Vision Respiratory: reports: No Symptoms reported Cardiac: reports: No Symptoms Reported GI: reports: No Symptoms Reported : reports: No Symptoms Reported Musculoskeletal: reports: Other ((L) upper arm pain x 1 week. Denies fall/injury ) Integumentary: reports: No Symptoms Reported Neuro: reports: Tremors Endocrine: reports: Increased Thirst Hematology: reports: No Symptoms Reported Psychiatric: reports: Judgement Intact, Agitated, Anxious Patient History - Patient Medical History Hx Anemia: Yes Hx Asthma: No Hx Chronic Obstructive Pulmonary Disease (COPD): No Hx Cancer: No Hx Cardiac Disorders: No Hx Congestive Heart Failure: No Hx Hypertension: Yes Hx Hypercholesterolemia: No Hx Pacemaker: No HX Cerebrovascular Accident: No Hx Seizures: No Hx Diabetes: No Hx Gastrointestinal Disorders: No Hx Liver Disease: No Hx Genitourinary Disorders: No Hx Sexually Transmitted Disorders: No Hx Renal Disease (ESRD): No Hx Thyroid Disease: No Hx Human Immunodeficiency Virus (HIV): No (negative 2015) Hx Hepatitis C: Yes (treated with harvoni and undetected) Hx Depression: Yes Hx Suicide Attempt: No Hx Bipolar Disorder: Yes (on meds) Hx Schizophrenia: No - Patient Surgical History Past Surgical History: No - PPD History Previous Implant?: Yes Documented Results: Negative w/proof Implanted On Prior [facility] Admission?: Yes Date: 06/17/17 PPD to be Administered?: Yes - Smoking Cessation Smoking history: Current every day smoker Have you smoked in the past 12 months: Yes Aproximately how many cigarettes per day: 10 Hx Chewing Tobacco Use: No Initiated information on smoking cessation: Yes 'Breaking Loose' booklet given: 11/23/18 - Substance & Tx. History Hx Alcohol Use: Yes Hx Substance Use: Yes Substance Use Type: Alcohol Hx Substance Use Treatment: Yes (detox, rehab, currently on MMTP) - Substances Abused Alcohol Route: Oral Frequency: Daily Amount used: 10 - 24 0z Age of first use: 15 Family Disease History - Family Disease History Family Disease History: CA: Father (leukemia- ), Other: Mother (Liver cirrhosis- ) Admission Physical Exam BHS - Vital Signs Vital Signs: Vital Signs - 24 hr 11/22/18 23:39 Temperature 98.2 F Pulse Rate 88 Respiratory 18 Rate Blood Pressure 129/80 - Physical General Appearance: Yes: Appropriately Dressed, Mild Distress, Tremorous, Sweating ((L) upper arm pain x 1 week. Denies fall/injury), Anxious HEENTM: Yes: EOMI, Hearing grossly Normal, AYANNA (Pupils = 2 mm), Pharynx Normal Respiratory: Yes: Lungs Clear, Normal Breath Sounds, No Respiratory Distress Neck: Yes: No masses,lesions,Nodules, Supple Breast: Yes: Breast Exam Deferred Cardiology: Yes: Regular Rhythm, Regular Rate, S1, S2 Abdominal: Yes: Non Tender, Flat, Soft, Increased Bowel Sounds Genitourinary: Yes: Within Normal Limits Back: Yes: Normal Inspection Musculoskeletal: Yes: Within Normal Limits Extremities: Yes: Normal Capillary Refill, Normal Range of Motion, Non-Tender, Tremors (Mild tremors) 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 Meds were d/c' d (2) Alcohol dependence with uncomplicated withdrawal Current Visit: Yes Status: Acute (3) Nicotine dependence Current Visit: Yes Status: Chronic Qualifiers: Nicotine product type: cigarettes Substance use status: in withdrawal Qualified Code(s): F17.213 - Nicotine dependence, cigarettes, with withdrawal (4) Opioid dependence on agonist therapy Current Visit: Yes Status: Chronic Comment: Needs verification. S Breath Alcohol Content Breath Alcohol Content: 0 Urine Drug Screen - Results Drug Screen Negative: No Urine Drug Screen Results: BZO-Benzodiazepines, MTD-Methadone Inpatient Rehab Admission - Rehab Decision to Admit Inpatient rehab admission?: No"
[2018-11-23] MEDS ORDERED: MAGNESIUM HYDROX 2400MG/30ML ORAL SUSPENSION 30 ML CUP PO PRN (01:09)
[2018-11-23] MEDS ORDERED: MAG HYDROX/AL HYDROX/SIMETH 30 ML UNIT-DOSE CUP PO PRN (01:09)
[2018-11-23] MEDS ORDERED: chlordiazePOXIDE HCL 10 MG CAPSULE PO PRN (01:09)
[2018-11-23] MEDS ORDERED: ACETAMINOPHEN 325 MG TABLET (FP) PO PRN ×2 (01:09)
[2018-11-23] MEDS ORDERED: MAGNESIUM CITRATE 300 ML BOTTLE PO PRN (01:09)
[2018-11-23] MEDS ORDERED: MENTHOL/PHENOL 1 EACH UD MM PRN (01:09)
[2018-11-23] MEDS ORDERED: BISMUTH SUBSALICYLATE 524 MG/30 ML UD PO PRN (01:09)
[2018-11-23] MEDS: chlordiazePOXIDE HCL 25 MG CAPSULE PO SCH ×3 (06:23→22:30)
[2018-11-23] MEDS ORDERED: METHADONE HCL 10 MG TABLET PO ONE (09:02)
[2018-11-23] MEDS ORDERED: METHADONE 80 MG, METHADONE 20 MG PO ONE (09:30)
--- NOTE | 2018-11-23 10:27 | PN ---
BHS CIWA - CIWA Score Nausea/Vomitin-No Nausea/No Vomiting Muscle Tremors: 4-Moderate,w/Arms Extend Anxiety: 1-Mildly Anxious Agitation: 1-Slight > Activity Paroxysmal Sweats: 4-Forehead w/Sweat Beads Orientation: 1-Uncertain about Date Tacttile Disturbances: 1-Very Mild Itch/Numbness Auditory Disturbances: 0-None Visual Disturbances: 0-None Headache: 1-Very Mild CIWA-Ar Total Score: 13 BHS Progress Note (SOAP) Subjective: Nausea shaky interrupted sleep sweats Objective: 11/23/18 10:23 Vital Signs 11/23/18 11/23/18 11/23/18 03:30 07:30 09:38 Temperature 97.5 F L 98.1 F Pulse Rate 72 79 Respiratory 18 18 18 Rate Blood Pressure 134/76 126/76 Assessment: 11/23/18 10:26 No respiratory distress Verbally responsive Ambulating in the unit withdrawal symptoms persist Plan: continue detox increase fluids labs pending
[2018-11-23] MEDS: PRENATAL VITAMINS W/ FOLIC ACID TABLET (FP) PO SCH (10:29)
[2018-11-23] MEDS ORDERED: METHADONE HCL 10 MG TABLET ONE (10:31)
[2018-11-23] MEDS ORDERED: METHADONE HCL 40 MG DISPERSABLE TABLET ONE (10:31)
[2018-11-23 11:31] LABS: HEMATOCRIT 41.3 % (35.4-49); HEMOGLOBIN 14.1 GM/dL (11.7-16.9); MCHC 34.1 g/dl (32.0-35.9); MEAN CELL VOLUME 105.3 fl (80-96); MEAN PLT VOLUME 9.1 fl (7.5-11.1); PLATELET COUNT 183 K/MM3 (134-434); RBC 3.92 M/mm3 (4.00-5.60); RDW 13.6 % (11.9-15.9); WHITE BLOOD COUNT 3.5 K/mm3 (4.0-10.0)
[2018-11-23 11:40] LABS: URINE APPEARANCE CLEAR; URINE BILIRUBIN NEGATIVE (<2.0 mg/dL); URINE COLOR LTYELLOW; URINE GLUCOSE (UA) NEGATIVE (NEGATIVE); URINE KETONE NEGATIVE (NEGATIVE); URINE LEUK ESTERASE NEGATIVE (NEGATIVE); URINE NITRITE NEGATIVE (NEGATIVE); URINE PROTEIN NEGATIVE (NEGATIVE); URINE UROBILINOGEN NEGATIVE mg/dL (0.2-1.0)
--- NOTE | 2018-11-23 12:03 | EKG ---
Test Reason : Blood Pressure : / mmHG Vent. Rate : 068 BPM Atrial Rate : 068 BPM P-R Int : 120 ms QRS Dur : 076 ms QT Int : 418 ms P-R-T Axes : 064 -71 037 degrees QTc Int : 444 ms NORMAL SINUS RHYTHM LEFT AXIS DEVIATION ABNORMAL ECG WHEN COMPARED WITH ECG OF 15-JUN-2017 15:47, NO SIGNIFICANT CHANGE WAS FOUND Confirmed by JEAN HURT MD ([id number]) on 11/23/2018 12:03:09 PM Referred By: Confirmed By:JEAN HURT MD
[2018-11-23 12:10] LABS: ALBUMIN 3.8 g/dl (3.4-5.0); ALK PHOS 84 U/L (45-117); ANION GAP 8 MMOL/L (8-16); BILIRUBIN,TOTAL 0.7 mg/dL (0.2-1); BLOOD UREA NITROGEN 15 mg/dL (7-18); CALCIUM 9.5 mg/dL (8.5-10.1); CHLORIDE 101 mmol/L (98-107); CO2 26 mmol/L (21-32); CREATININE 0.9 mg/dL (0.55-1.3); GLUCOSE,RANDOM 93 mg/dL (74-106); SGOT/AST 30 U/L (15-37); SGPT/ALT 24 U/L (13-61); SODIUM 135 mmol/L (136-145); TOT PROT 7.2 g/dl (6.4-8.2)
[2018-11-23] MEDS: NICOTINE 21 MG/24 HOURS TOPICAL PATCH TD SCH (14:02)
[2018-11-23] MEDS: MELATONIN 5 MG TABLETS PO PRN (22:29)
[2018-11-23] MEDS: THIAMINE HCL 100 MG TABLET (FP) PO SCH (22:29)
[2018-11-24] MEDS ORDERED: METHADONE HCL 40 MG DISPERSABLE TABLET ONE (04:29)
[2018-11-24] MEDS ORDERED: METHADONE HCL 10 MG TABLET ONE (04:29)
[2018-11-24] MEDS: chlordiazePOXIDE 5 MG CAPSULE PO SCH ×3 (05:38→22:22)
[2018-11-24] MEDS ORDERED: METHADONE HCL 40 MG DISPERSABLE TABLET PO SCH (06:00)
[2018-11-24] MEDS: METHADONE 80 MG, METHADONE 20 MG PO SCH (06:43)
[2018-11-24] MEDS: PRENATAL VITAMINS W/ FOLIC ACID TABLET (FP) PO SCH (10:59)
[2018-11-24] MEDS: NICOTINE 21 MG/24 HOURS TOPICAL PATCH TD SCH (11:00)
[2018-11-24] MEDS: IBUPROFEN 400 MG TABLET (FP) PO PRN (11:01)
--- NOTE | 2018-11-24 12:50 | PN ---
S CIWA - CIWA Score Nausea/Vomitin Muscle Tremors: 2 Anxiety: 2 Agitation: 2 Paroxysmal Sweats: 2 Orientation: 0-Oriented Tacttile Disturbances: 1-Very Mild Itch/Numbness Auditory Disturbances: 1-Very Mild Visual Disturbances: 0-None Headache: 2-Mild CIWA-Ar Total Score: 14 S Progress Note (SOAP) Subjective: alert,irritable,anxious,interrupted sleep Objective: 11/24/18 12:48 Vital Signs Temperature 98.2 F 11/24/18 09:56 Pulse Rate 79 11/24/18 09:56 Respiratory Rate 16 11/24/18 09:56 Blood Pressure 105/69 11/24/18 09:56 O2 Sat by Pulse Oximetry (%) Laboratory Last Values WBC 3.5 K/mm3 (4.0-10.0) L 11/23/18 07:30 RBC 3.92 M/mm3 (4.00-5.60) L 11/23/18 07:30 Hgb 14.1 GM/dL (11.7-16.9) 11/23/18 07:30 Hct 41.3 % (35.4-49) 11/23/18 07:30 MCV 105.3 fl (80-96) H 11/23/18 07:30 MCH 36.0 pg (25.7-33.7) H 11/23/18 07:30 MCHC 34.1 g/dl (32.0-35.9) 11/23/18 07:30 RDW 13.6 % (11.9-15.9) 11/23/18 07:30 Plt Count 183 K/MM3 (134-434) 11/23/18 07:30 MPV 9.1 fl (7.5-11.1) D 11/23/18 07:30 Sodium 135 mmol/L (136-145) L 11/23/18 07:30 Potassium 4.0 mmol/L (3.5-5.1) 11/23/18 07:30 Chloride 101 mmol/L (98-107) 11/23/18 07:30 Carbon Dioxide 26 mmol/L (21-32) 11/23/18 07:30 Anion Gap 8 MMOL/L (8-16) 11/23/18 07:30 BUN 15 mg/dL (7-18) 11/23/18 07:30 Creatinine 0.9 mg/dL (0.55-1.3) 11/23/18 07:30 Creat Clearance w eGFR 84.96 (>60) 11/23/18 07:30 Random Glucose 93 mg/dL (74-106) 11/23/18 07:30 Calcium 9.5 mg/dL (8.5-10.1) 11/23/18 07:30 Total Bilirubin 0.7 mg/dL (0.2-1) 11/23/18 07:30 AST 30 U/L (15-37) 11/23/18 07:30 ALT 24 U/L (13-61) 11/23/18 07:30 Alkaline Phosphatase 84 U/L (45-117) 11/23/18 07:30 Total Protein 7.2 g/dl (6.4-8.2) 11/23/18 07:30 Albumin 3.8 g/dl (3.4-5.0) 11/23/18 07:30 Urine Color Ltyellow 11/23/18 08:00 Urine Appearance Clear 11/23/18 08:00 Urine pH 6.0 (5.0-8.0) 11/23/18 08:00 Ur Specific [place] 1.010 (1.010-1.035) 11/23/18 08:00 Urine Protein Negative (NEGATIVE) 11/23/18 08:00 Urine Glucose (UA) Negative (NEGATIVE) 11/23/18 08:00 Urine Ketones Negative (NEGATIVE) 11/23/18 08:00 Urine Blood Negative (NEGATIVE) 11/23/18 08:00 Urine Nitrite Negative (NEGATIVE) 11/23/18 08:00 Urine Bilirubin Negative (<2.0 mg/dL) 11/23/18 08:00 Urine Urobilinogen Negative mg/dL (0.2-1.0) 11/23/18 08:00 Ur Leukocyte Esterase Negative (NEGATIVE) 11/23/18 08:00 RPR Titer Nonreactive (NONREACTIVE) 11/23/18 07:30 Assessment: 11/24/18 12:49 withdrawal symptom Plan: continue detox
[2018-11-24] MEDS: MELATONIN 5 MG TABLETS PO PRN (22:22)
[2018-11-24] MEDS: THIAMINE HCL 100 MG TABLET (FP) PO SCH (22:22)
[2018-11-25] MEDS ORDERED: chlordiazePOXIDE HCL 10 MG CAPSULE PO PRN (05:00)
[2018-11-25] MEDS ORDERED: METHADONE HCL 40 MG DISPERSABLE TABLET ONE (05:14)
[2018-11-25] MEDS ORDERED: METHADONE HCL 10 MG TABLET ONE (05:15)
[2018-11-25] MEDS: METHADONE 80 MG, METHADONE 20 MG PO SCH (05:51)
[2018-11-25] MEDS: chlordiazePOXIDE HCL 10 MG CAPSULE PO SCH ×3 (05:51→22:12)
[2018-11-25] MEDS: NICOTINE 21 MG/24 HOURS TOPICAL PATCH TD SCH (10:16)
[2018-11-25] MEDS: PRENATAL VITAMINS W/ FOLIC ACID TABLET (FP) PO SCH (10:16)
[2018-11-25] MEDS: IBUPROFEN 400 MG TABLET (FP) PO PRN (10:46)
--- NOTE | 2018-11-25 13:04 | PN ---
S Progress Note (SOAP) Subjective: alert,irritable,anxious,interrupted sleep,aching pain Objective: 11/25/18 13:03 Vital Signs Temperature 98.6 F 11/25/18 09:40 Pulse Rate 117 H 11/25/18 09:40 Respiratory Rate 18 11/25/18 09:40 Blood Pressure 116/67 11/25/18 09:40 O2 Sat by Pulse Oximetry (%) Assessment: 11/25/18 13:03 withdrawal symptom Plan: continue detox,discharge in am at 0700am
[2018-11-25] MEDS: THIAMINE HCL 100 MG TABLET (FP) PO SCH (22:13)
[2018-11-25] MEDS: MELATONIN 5 MG TABLETS PO PRN (22:14)
[2018-11-26] MEDS ORDERED: METHADONE HCL 40 MG DISPERSABLE TABLET ONE (04:49)
[2018-11-26] MEDS ORDERED: METHADONE HCL 10 MG TABLET ONE (04:49)
[2018-11-26] MEDS: METHADONE 80 MG, METHADONE 20 MG PO SCH (05:22)
[2018-11-26] MEDS: chlordiazePOXIDE HCL 10 MG CAPSULE PO SCH (05:22)
[2018-11-26 09:24] VITALS: BP 116/76; PULSE 67; TEMP 98.3
[2018-11-26] MEDS: NICOTINE 21 MG/24 HOURS TOPICAL PATCH TD SCH (10:31)
[2018-11-26] MEDS: PRENATAL VITAMINS W/ FOLIC ACID TABLET (FP) PO SCH (10:31)
[2018-11-26] MEDS: IBUPROFEN 400 MG TABLET (FP) PO PRN (10:33)
--- NOTE | 2018-11-26 15:01 | PN ---
S Progress Note (SOAP) Subjective: No complaint ordered Objective: 11/26/18 15:00 A & Ox 3 not in distress Vital Signs Temperature 98.3 F 11/26/18 09:23 Pulse Rate 67 11/26/18 09:23 Respiratory Rate 18 11/26/18 09:23 Blood Pressure 116/76 11/26/18 09:23 O2 Sat by Pulse Oximetry (%) Assessment: 11/26/18 15:01 discharge completed in stable condition Plan: for d/c
--- NOTE | 2018-11-26 15:05 | DS ---
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 Stable for discharge Pertinent Past History: HTN HEP C Bipolar Anemia - Physical Exam Results Vital Signs: Vital Signs Temperature 98.3 F 11/26/18 09:23 Pulse Rate 67 11/26/18 09:23 Respiratory Rate 18 11/26/18 09:23 Blood Pressure 116/76 11/26/18 09:23 O2 Sat by Pulse Oximetry (%) Pertinent Admission Physical Exam Findings: withdrawal sx - Treatment Hospital Course: Detox Protocol Followed, Detoxed Safely, Responded well, Discharged Condition Good - Medication Discharge Medications: Ambulatory Orders Cholecalciferol (Vitamin D3) [Vitamin D3] 50,000 unit PO WEEKLY 06/15/17 Ferrous Sulfate [Feosol] 325 mg PO DAILY 06/15/17 Mirtazapine [Remeron -] 30 mg PO HS #30 tablet 06/15/17 Multivitamins [Tab-A-Vit -] 1 tab PO DAILY 06/15/17 Quetiapine Fumarate [Seroquel -] 50 mg PO BID #60 tablet 06/15/17 Amlodipine Besylate 5 mg PO DAILY #30 mg 06/19/17 - AMA Did Patient Leave Against Medical Advice: No
== END 2018-11-26 11:37 | disposition home or self-care (01) | DRG 773 ==
LOC: YASAS 23:17 → Y6N 23:56
PROVIDERS: ADMIT Surgery; ATTEND Surgery
PROC: HZ2ZZZZ Detoxification Services for Substance Abuse Treatment (ICD-10-PCS; principal; 2018-11-22)
DX: F10.230 Alcohol dependence with withdrawal, uncomplicated (principal); F11.20 Opioid dependence, uncomplicated; F17.210 Nicotine dependence, cigarettes, uncomplicated; F31.9 Bipolar disorder, unspecified; I10 Essential (primary) hypertension; D64.9 Anemia, unspecified; Z86.19 Personal history of other infectious and parasitic diseases
CPT/HCPCS: 36415; 80053; 81003; 85027; 86593; 93005; 93010

== ENCOUNTER 2020-06-03 12:14 | Inpatient (IN) | payer OTHER ==
--- NOTE | 2020-06-03 12:38 | BHS.RME ---
Substance Use & Tx History - Substance Use History Alcohol Substance amount: 12 beers 24 oz Frequency of use: Daily Substance route: Oral Date of Last Use: 06/03/20 (started age 15) Nicotine Substance amount: 10 ciggs Frequency of use: Daily Substance route: Smoking Date of Last Use: 06/03/20 CIWA Nausea/Vomitin Muscle Tremors: 5 Anxiety: 4-Mod. Anxious/Guarded Agitation: 4-Moderately Restless Paroxysmal Sweats: 4-Forehead w/Sweat Beads Orientation: 0-Oriented Tacttile Disturbances: 0-None Auditory Disturbances: 0-None Visual Disturbances: 0-None Headache: 3-Moderate CIWA-Ar Total Score: 23
--- NOTE | 2020-06-03 13:11 | HP ---
CIWA Score Nausea/Vomitin Muscle Tremors: 5 Anxiety: 4-Mod. Anxious/Guarded Agitation: 4-Moderately Restless Paroxysmal Sweats: 4-Forehead w/Sweat Beads Orientation: 0-Oriented Tacttile Disturbances: 0-None Auditory Disturbances: 0-None Visual Disturbances: 0-None Headache: 3-Moderate CIWA-Ar Total Score: 23 - Admission Criteria OASAS Guidelines: Admission for Medically Managed Detox: Requires at least one of the followin. CIWA greater than 12 2. Seizures within the past 24 hours 3. Delirium tremens within the past 24 hours 4. Hallucinations within the past 24 hours 5. Acute intervention needed for co occurring medical disorder 6. Acute intervention needed for co occurring psychiatric disorder 7. Severe withdrawal that cannot be handled at a lower level of care (continued vomiting, continued diarrhea, abnormal vital signs) requiring intravenous medication and/or fluids 8. Admitting History and Physical - Smoking History Smoking history: Current every day smoker Have you smoked in the past 12 months: Yes Aproximately how many cigarettes per day: 10 - Alcohol/Substance Use Hx Alcohol Use: Yes Admission ROS [facility] Chief Complaint: " I am drinking too much." Allergies/Adverse Reactions: Allergies Allergy/AdvReac Type Severity Reaction Status Date / Time No Known Allergies Allergy Verified 06/15/17 11:25 History of Present Illness: 64 year old male with history of alcohol dependence , opioid dependence on agonist therapy, and nicotine dependence. He has no significant past medical history, but has had multiple relapsed from alcohol. 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 LIBORIO=0.019 CIWA=23 Urine Tox: BZO, states friend gave him something. Patient in alcohol intoxication. Patient meets criteria for detox as he has poor recovery environment and multiple relapses in treatment. Patient lacks judgment and insight into his disease. CIWA Nausea/Vomitin Muscle Tremors: 5 Anxiety: 4-Mod. Anxious/Guarded Agitation: 4-Moderately Restless Paroxysmal Sweats: 4-Forehead w/Sweat Beads Orientation: 0-Oriented Tacttile Disturbances: 0-None Auditory Disturbances: 0-None Visual Disturbances: 0-None Headache: 3-Moderate CIWA-Ar Total Score: 23 Exam Limitations: No Limitations - Ebola screening Have you traveled outside of the country in the last 21 days: No Have you had contact with anyone from an Ebola affected area: No Have you been sick,other than usual withdrawal symptoms: No Do you have a fever: No - Review of Systems Constitutional: Chills, Diaphoresis, Unintentional Wgt. Loss EENT: reports: No Symptoms Reported Respiratory: reports: No Symptoms reported Cardiac: reports: No Symptoms Reported GI: reports: No Symptoms Reported : reports: No Symptoms Reported Musculoskeletal: reports: No Symptoms Reported Integumentary: reports: No Symptoms Reported Neuro: reports: No Symptoms reported, Headache, Tingling, Tremors, Ataxia Endocrine: reports: Unexplained Weight Loss Psychiatric: reports: Judgement Intact, Mood/Affect Appropiate, Orientated x3, Agitated, Anxious Other Systems: Reviewed and Negative Patient History - Patient Medical History Hx Anemia: Yes Hx Asthma: No Hx Chronic Obstructive Pulmonary Disease (COPD): No Hx Cancer: No Hx Cardiac Disorders: No Hx Congestive Heart Failure: No Hx Hypertension: No Hx Hypercholesterolemia: No Hx Pacemaker: No HX Cerebrovascular Accident: No Hx Seizures: No Hx Diabetes: No Hx Gastrointestinal Disorders: No Hx Liver Disease: No Hx Genitourinary Disorders: No Hx Sexually Transmitted Disorders: Yes (GONORRHEA) Hx Renal Disease (ESRD): No Hx Thyroid Disease: No Hx Human Immunodeficiency Virus (HIV): No (negative 2016) Hx Hepatitis C: Yes (treated with harvoni and undetected) Hx Depression: No Hx Suicide Attempt: No Hx Bipolar Disorder: Yes (on meds) Hx Schizophrenia: No - Patient Surgical History Past Surgical History: No Hx Neurologic Surgery: No Hx Cataract Extraction: No Hx Cardiac Surgery: No Hx Lung Surgery: No Hx Breast Surgery: No Hx Breast Biopsy: No Hx Abdominal Surgery: No Hx Appendectomy: No Hx Cholecystectomy: No Hx Genitourinary Surgery: No Hx Section: No Hx Orthopedic Surgery: No Anesthesia Reaction: No - PPD History Previous Implant?: Yes Implanted On Prior [facility] Admission?: Yes Date: 11/25/18 PPD to be Administered?: Yes - Smoking Cessation Smoking history: Current every day smoker Have you smoked in the past 12 months: Yes Aproximately how many cigarettes per day: 10 Hx Chewing Tobacco Use: No Initiated information on smoking cessation: Yes 'Breaking Loose' booklet given: 06/03/20 - Substances abused Alprazolam (Xanax) Substance route: Oral Frequency: Daily Amount used: 12 beers daily 24 oz Age of first use: 15 Date of last use: 06/03/20 Admission Physical Exam BHS - Physical General Appearance: Yes: Thin, Tremorous, Irritable, Sweating, Anxious HEENTM: Yes: EOMI, Hearing grossly Normal, Normal ENT Inspection, Normocephalic, Normal Voice, AYANNA, Pharynx Normal, Tm's normal Respiratory: Yes: Chest Non-Tender, Lungs Clear, Normal Breath Sounds, No Respiratory Distress, No Accessory Muscle Use Neck: Yes: No masses,lesions,Nodules, Supple, Trachea in good position Breast: Yes: Within Normal Limits Cardiology: Yes: Regular Rhythm, S1, S2, Tachycardia Abdominal: Yes: Normal Bowel Sounds, Non Tender, Flat, Soft Genitourinary: Yes: Within Normal Limits Back: Yes: Normal Inspection Musculoskeletal: Yes: full range of Motion, Gait Steady, Pelvis Stable Extremities: Yes: Normal Capillary Refill, Normal Inspection, Normal Range of Motion, Non-Tender Neurological: Yes: 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-XII NML intact, Fully Oriented, Alert, Motor Strength 5/5, Normal Mood/Affect, Normal Response Integumentary: Yes: Normal Color, Dry, Warm Lymphatic: Yes: Within Normal Limits - Diagnostic (1) Alcohol dependence with uncomplicated withdrawal Current Visit: Yes Status: Acute (2) Head injury Current Visit: Yes Status: Acute Qualifiers: Encounter type: initial encounter Qualified Code(s): S09.90XA - Unspecified injury of head, initial encounter (3) Insomnia Current Visit: Yes Status: Acute Qualifiers: Insomnia type: unspecified Qualified Code(s): G47.00 - Insomnia, unspecified (4) Substance induced mood disorder Current Visit: Yes Status: Acute (5) Anemia Current Visit: Yes Status: Chronic Qualifiers: Anemia type: iron deficiency Iron deficiency anemia type: unspecified iron deficiency Qualified Code(s): D50.9 - Iron deficiency anemia, unspecified (6) Bipolar disorder Current Visit: Yes Status: Chronic Qualifiers: Active/Remission status: remission status unspecified Qualified Code(s): F31.9 - Bipolar disorder, unspecified Comment: Self-report. (7) Hepatitis C Current Visit: Yes Status: Chronic Qualifiers: Viral hepatitis chronicity: chronic Hepatic coma status: without hepatic coma Qualified Code(s): B18.2 - Chronic viral hepatitis C (8) Hypertension Current Visit: Yes Status: Chronic Qualifiers: Hypertension type: essential hypertension Qualified Code(s): I10 - Essential (primary) hypertension (9) Methadone maintenance therapy patient Current Visit: Yes Status: Chronic Comment: Patient on MMTP with [facility]. Verified by Ms. Danielle Gamble (10) Nicotine dependence Current Visit: Yes Status: Chronic Qualifiers: Nicotine product type: cigarettes Substance use status: in withdrawal Qualified Code(s): F17.213 - Nicotine dependence, cigarettes, with withdrawal (11) Opioid dependence on agonist therapy Current Visit: Yes Status: Chronic Comment: Needs verification. (12) History of hypertension Current Visit: Yes Status: Suspected Comment: States resolved. Meds were d/c'd Cleared for Admission S - Detox or Rehab [facility] Level of Care: Medically Managed Detox Regimen/Protocol: Librium Claeared for Rehab Admission: No Screened but not Admitted - Documentation of Visit Screened but not Admitted: No Breathalyzer - Breathalyzer Breathalyzer: 0.019 Vital Signs - Vital Signs Vital signs refused: No Temperature: 97.2 F Pulse Rate: 86 Respiratory Rate: 16 Blood Pressure: 167/101 BP Location: Left Arm Blood Pressure position: Sitting - Height Height: 5 ft 6 in - Weight Weight: 114 lb Weight measurement method: Standing scale - BMI Body Mass Index (BMI): 18.3 - Bowel Function Bowel Movement: No Urine Drug Screen - Results Drug screen NEGATIVE: No Urine drug screen results: BZO-Benzodiazepines (states a friend gave him something.) Inpatient Rehab Admission - Rehab Decision to Admit Inpatient rehab admission?: No
--- OUTSIDE RECORDS SUMMARY | 2020-06-03 13:14 | XMS ---
:[address] [facility] Support Name Relationship Address Phone UE Unavailable Unavailable Unavailable AMBER [employer] [address] [place] [address] Re-disclosure Warning The records that you are about to access may contain information from federally- assisted alcohol or drug abuse programs. If such information is present, then the following federally mandated warning applies: This information has been disclosed to you from records protected by federal confidentiality rules (42 CFR part 2). The federal rules prohibit you from making any further disclosure of this information unless further disclosure is expressly permitted by the written consent of the person to whom it pertains or as otherwise permitted by 42 CFR part 2. A general authorization for the release of medical or other information is NOT sufficient for this purpose. The Federal rules restrict any use of the information to criminally investigate or prosecute any alcohol or drug abuse patient.The records that you are about to access may contain highly sensitive health information, the redisclosure of which is protected by Article 27-F of the [facility] Public Health law. If you continue you may haveaccess to information: Regarding HIV / AIDS; Provided by facilities licensed or operated by the [facility] Office of Mental Health; or Provided by the [facility] Office for People With Developmental Disabilities. If such information is present, then the following [facility] mandated warning applies: This information has been disclosed to you from confidential records which are protected by state law. State law prohibits you from making any further disclosure of this information without the specific written consent of the person to whom it pertains, or as otherwise permitted by law. Any unauthorized further disclosure in violation of state law may result in a fine or prison sentence or both. A general authorization for the release of medical or other information is NOT sufficient authorization for further disclosure. Insurance Providers Payer name Policy type Policy ID Covered Covered republican's Policy P sally / Coverage republican ID relationship to [facility] ormation type mart[facility] [id number] SP [id number] [facility] [id number] SP [id number] FIRST Results ID Date Data Source [id number] 05/15/2020 05:08:00 PM EDT [facility] Name Value Range Interpretation Code Description Data Yelitza rce(s) Supporting Document(s ) SARS-CoV-2 [facility] RNA Resp Ql TAVON+probe This lab was ordered by [place] and jess rted by [facility]. ID Date Data Source [id number] 04/18/2020 07:30:00 PM EDT [facility] Name Value Range Interpretation Code Description Data Yelitza rce(s) Supporting Document(s ) SARS-CoV-2 [facility] RNA Resp Health System Ql TAVON+probe This lab was ordered by [facility] and reported by [facility]. ID Date Data Source [id number] 01/27/2020 06:36:00 PM EDT [facility] Name Value Range Interpretation Code Description Data Yelitza rce(s) Supporting Document(s ) SARS-CoV-2 [facility] RNA Resp Health System Ql TAVON+probe This lab was ordered by [facility] and reported by [facility]. Procedure
[2020-06-03] MEDS ORDERED: BISMUTH SUBSALICYLATE 262 MG/15 ML BTL PO PRN (13:20)
[2020-06-03] MEDS ORDERED: MENTHOL/PHENOL 1 EACH UD MM PRN (13:20)
[2020-06-03] MEDS ORDERED: ACETAMINOPHEN 325 MG TABLET (FP) PO PRN ×2 (13:20)
[2020-06-03] MEDS ORDERED: ONDANSETRON *ODT* 4 MG TABLET SL PRN (13:20)
[2020-06-03] MEDS ORDERED: MAGNESIUM HYDROX 2400MG/30ML ORAL SUSPENSION 30 ML CUP PO PRN (13:20)
[2020-06-03] MEDS ORDERED: NICOTINE POLACRILEX 2 MG GUM BUC PRN (13:20)
[2020-06-03] MEDS ORDERED: METHOCARBAMOL 500 MG TABLET PO PRN (13:20)
[2020-06-03] MEDS ORDERED: chlordiazePOXIDE HCL 25 MG CAPSULE PO PRN (13:20)
[2020-06-03] MEDS ORDERED: MAGNESIUM CITRATE 300 ML BOTTLE PO PRN (13:20)
[2020-06-03 13:21] VITALS: BMI 18.3
[2020-06-03] MEDS ORDERED: chlordiazePOXIDE HCL 25 MG CAPSULE PO ONE (13:30)
[2020-06-03] MEDS: hydrOXYzine PAMOATE 25 MG CAPSULE (FP) PO SCH ×3 (15:42→23:08)
[2020-06-03] MEDS: PRENATAL VITAMINS W/ FOLIC ACID TABLET (FP) PO SCH (15:42)
[2020-06-03] MEDS: NICOTINE 7 MG/24 HOURS TOPICAL PATCH TD SCH (15:42)
[2020-06-03 16:50] LABS: HEMATOCRIT 44.6 % (35.4-49); HEMOGLOBIN 14.6 GM/dL (11.7-16.9); MCH 33.1 pg (25.7-33.7); MCHC 32.7 g/dl (32.0-35.9); MEAN CELL VOLUME 101.1 fl (80-96); MEAN PLT VOLUME 8.1 fl (7.5-11.1); PLATELET COUNT 236 K/MM3 (134-434); RBC 4.41 M/mm3 (4.00-5.60); RDW 13.8 % (11.9-15.9); WHITE BLOOD COUNT 4.6 K/mm3 (4.0-10.0)
[2020-06-03] MEDS: chlordiazePOXIDE HCL 25 MG CAPSULE PO SCH ×2 (17:23→23:11)
[2020-06-03 17:27] LABS: BLOOD UREA NITROGEN 4.1 mg/dL (7-18)
[2020-06-03 17:29] LABS: ALBUMIN 4.4 g/dl (3.4-5.0); BILIRUBIN,TOTAL 1.3 mg/dL (0.2-1); CALCIUM 9.9 mg/dL (8.5-10.1); CREATININE 0.7 mg/dL (0.55-1.3); POTASSIUM 5.2 mmol/L (3.5-5.1); TOT PROT 9.1 g/dl (6.4-8.2)
[2020-06-03] MEDS: MELATONIN 5 MG TABLETS PO SCH (23:08)
[2020-06-03] MEDS: THIAMINE HCL 100 MG TABLET (FP) PO SCH (23:08)
[2020-06-04] MEDS: hydrOXYzine PAMOATE 25 MG CAPSULE (FP) PO SCH ×5 (05:21→22:07)
[2020-06-04] MEDS: chlordiazePOXIDE HCL 25 MG CAPSULE PO SCH ×4 (05:21→22:07)
[2020-06-04] MEDS ORDERED: METHADONE HCL 10 MG TABLET PO ONE (09:56)
[2020-06-04] MEDS ORDERED: METHADONE 40 MG, METHADONE 10 MG PO ONE (10:04)
[2020-06-04] MEDS ORDERED: METHADONE HCL 10 MG TABLET ONE (10:12)
[2020-06-04] MEDS ORDERED: METHADONE HCL 40 MG DISPERSABLE TABLET ONE (10:13)
--- NOTE | 2020-06-04 10:18 | CONSULT ---
[facility] Psychiatric Consult - Data Date of interview: 06/04/20 Admission source: Self-referred Identifying data: Mr Aquino is a 64 years old single male, father of 2 children, unemployed receiving public assistance, domiciled seeking detox treatment for alcohol Substance Abuse History: Reports history of alcohol use. Refer to addiction counselor's summary for further information Medical History: Significant for anemia, hypertension and history of treatment for treatment hepatitis C and gonorrhea. Patient is on methadone 70 mg/day from [facility] M[facility]. Smokes 10 cigarettes daily Psychiatric History: Admitted to the psychiatric inpatient service at [facility] years ago.Diagnosed with Bipolar Disorder.Prescribed seroquel 50 mg po bid + remeron 30 mg/hs.Mr Aquino gets psychiatric OPD care at [facility] in the [place].Patient denies history of suicide attempts. Psychiatric Findings - Problem List ([place] 1, 2,3) (1) Bipolar disorder Current Visit: Yes Status: Chronic Qualifiers: Active/Remission status: remission status unspecified Qualified Code(s): F31.9 - Bipolar disorder, unspecified Comment: Self-report.
[2020-06-04] MEDS: amLODIPine BESYLATE 5 MG TABLET (FP) PO SCH (10:45)
[2020-06-04] MEDS: FERROUS SO4 325 MG TABLET (FP) PO SCH (10:45)
[2020-06-04] MEDS: MULTIVITAMINS (DAILY MVI) TABLET (FP) PO SCH (10:48)
[2020-06-04] MEDS: NICOTINE 7 MG/24 HOURS TOPICAL PATCH TD SCH (10:48)
[2020-06-04] MEDS: PRENATAL VITAMINS W/ FOLIC ACID TABLET (FP) PO SCH (10:48)
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
[2020-06-04] MEDS: IBUPROFEN 400 MG TABLET (FP) PO PRN (17:39)
[2020-06-04] MEDS: THIAMINE HCL 100 MG TABLET (FP) PO SCH (22:07)
[2020-06-04] MEDS: QUEtiapine FUMARATE 100 MG TABLET (FP) PO SCH (22:07)
[2020-06-04] MEDS: MELATONIN 5 MG TABLETS PO SCH (22:08)
[2020-06-04] MEDS: MAG HYDROX/AL HYDROX/SIMETH 30 ML UNIT-DOSE CUP PO PRN (23:43)
[2020-06-05] MEDS ORDERED: METHADONE HCL 10 MG TABLET ONE (04:08)
[2020-06-05] MEDS ORDERED: METHADONE HCL 40 MG DISPERSABLE TABLET ONE (04:08)
[2020-06-05] MEDS ORDERED: chlordiazePOXIDE HCL 25 MG CAPSULE PO SCH ×2 (05:00→09:09)
[2020-06-05] MEDS: hydrOXYzine PAMOATE 25 MG CAPSULE (FP) PO SCH (05:30)
[2020-06-05] MEDS ORDERED: METHADONE 40 MG, METHADONE 10 MG PO SCH (06:00)
[2020-06-05] MEDS ORDERED: METHADONE HCL 40 MG DISPERSABLE TABLET PO SCH (06:00)
[2020-06-05] MEDS ORDERED: hydrOXYzine PAMOATE 25 MG CAPSULE (FP) PO PRN (09:00)
[2020-06-05] MEDS ORDERED: NALOXONE HCL 0.4 MG/ML VIAL IM ONE (09:10)
[2020-06-05 10:43] LABS: ALBUMIN 3.8 g/dl (3.4-5.0); BILIRUBIN,TOTAL 0.7 mg/dL (0.2-1); CALCIUM 9.1 mg/dL (8.5-10.1); CREATININE 1.1 mg/dL (0.55-1.3); POTASSIUM 4.9 mmol/L (3.5-5.1); TOT PROT 7.7 g/dl (6.4-8.2)
[2020-06-05] MEDS: PRENATAL VITAMINS W/ FOLIC ACID TABLET (FP) PO SCH (11:00)
[2020-06-05] MEDS: FERROUS SO4 325 MG TABLET (FP) PO SCH (11:00)
[2020-06-05] MEDS: NICOTINE 7 MG/24 HOURS TOPICAL PATCH TD SCH (11:00)
[2020-06-05] MEDS: MULTIVITAMINS (DAILY MVI) TABLET (FP) PO SCH (11:00)
[2020-06-05] MEDS: amLODIPine BESYLATE 5 MG TABLET (FP) PO SCH (11:00)
--- NOTE | 2020-06-05 12:13 | PN ---
S CIWA - CIWA Score Nausea/Vomitin-No Nausea/No Vomiting Muscle Tremors: 2 Anxiety: 1-Mildly Anxious Agitation: 2 Paroxysmal Sweats: No Perspiration Orientation: 0-Oriented Tacttile Disturbances: 0-None Auditory Disturbances: 0-None Visual Disturbances: 0-None Headache: 0-None Present CIWA-Ar Total Score: 5 BHS Progress Note (SOAP) Subjective: lethargic sleepy tired Objective: 06/05/20 12:10 Vital Signs Temperature 97.8 F 06/05/20 11:08 Pulse Rate 97 H 06/05/20 11:08 Respiratory Rate 16 06/05/20 11:08 Blood Pressure 109/73 06/05/20 11:08 O2 Sat by Pulse Oximetry (%) 96 06/05/20 11:08 Laboratory Tests 06/03/20 06/03/20 06/03/20 13:47 13:47 13:47 WBC 4.6 RBC 4.41 Hgb 14.6 Hct 44.6 MCV 101.1 H MCH 33.1 MCHC 32.7 RDW 13.8 Plt Count 236 D MPV 8.1 D Sodium 127 L Potassium 5.2 H Chloride 94 L Carbon Dioxide 19 L Anion Gap 14 BUN 4.1 L Creatinine 0.7 Est GFR (CKD-EPI)AfAm 114.78 Est GFR (CKD-EPI)NonAf 99.03 Random Glucose 95 Calcium 9.9 Total Bilirubin 1.3 H AST 27 ALT 17 Alkaline Phosphatase 119 H Total Protein 9.1 H Albumin 4.4 Syphilis Serology Non-reactive COVID-19 (TAVON) 06/03/20 06/05/20 15:30 07:00 WBC RBC Hgb Hct MCV MCH MCHC RDW Plt Count MPV Sodium 134 L Potassium 4.9 Chloride 100 Carbon Dioxide 27 Anion Gap 7 L BUN 18.0 Creatinine 1.1 Est GFR (CKD-EPI)AfAm 81.22 Est GFR (CKD-EPI)NonAf 70.07 Random Glucose 95 Calcium 9.1 Total Bilirubin 0.7 AST 24 ALT 16 Alkaline Phosphatase 89 Total Protein 7.7 Albumin 3.8 Syphilis Serology COVID-19 (TAVON) Not detected labs noted potassium WNL awake/arousable but very lethargic Assessment: 06/05/20 12:11 pinpoint pupils noted lethargic/sleepy/ narcan IM 0.4mg x one dose given pt woke up very responsive. walking and talking freely. will continue to assess Plan: librium on hold and dose was decreased as well methadone dose decreased to 30mg seroquel on hold encourage fluids will continue to monitor
[2020-06-05] MEDS: chlordiazePOXIDE 5 MG CAPSULE PO SCH ×2 (15:19→19:00)
[2020-06-05] MEDS: THIAMINE HCL 100 MG TABLET (FP) PO SCH (22:48)
[2020-06-05] MEDS: MELATONIN 5 MG TABLETS PO SCH (22:48)
[2020-06-06] MEDS ORDERED: chlordiazePOXIDE HCL 10 MG CAPSULE PO PRN
[2020-06-06] MEDS: IBUPROFEN 400 MG TABLET (FP) PO PRN (01:40)
[2020-06-06] MEDS ORDERED: METHADONE HCL 10 MG TABLET PO SCH (06:00)
[2020-06-06] MEDS: chlordiazePOXIDE HCL 10 MG CAPSULE PO SCH ×4 (07:26→23:05)
[2020-06-06] MEDS: FERROUS SO4 325 MG TABLET (FP) PO SCH (10:25)
[2020-06-06] MEDS: amLODIPine BESYLATE 5 MG TABLET (FP) PO SCH (10:25)
[2020-06-06] MEDS: NICOTINE 7 MG/24 HOURS TOPICAL PATCH TD SCH (10:25)
[2020-06-06] MEDS: METHADONE HCL 10 MG TABLET PO SCH (10:25)
[2020-06-06] MEDS: PRENATAL VITAMINS W/ FOLIC ACID TABLET (FP) PO SCH (10:26)
--- NOTE | 2020-06-06 11:30 | PN ---
BHS CIWA - CIWA Score Nausea/Vomitin-No Nausea/No Vomiting Muscle Tremors: 2 Anxiety: 1-Mildly Anxious Agitation: 1-Slight > Activity Paroxysmal Sweats: No Perspiration Orientation: 0-Oriented Tacttile Disturbances: 0-None Auditory Disturbances: 0-None Visual Disturbances: 0-None Headache: 0-None Present CIWA-Ar Total Score: 4 BHS Progress Note (SOAP) Subjective: feeling better anxiety Objective: 06/06/20 11:29 Vital Signs Temperature 98.0 F 06/06/20 08:35 Pulse Rate 103 H 06/06/20 08:35 Respiratory Rate 16 06/06/20 08:35 Blood Pressure 128/66 06/06/20 08:35 O2 Sat by Pulse Oximetry (%) 96 06/06/20 05:15 Laboratory Tests 06/03/20 06/03/20 06/03/20 13:47 13:47 13:47 WBC 4.6 RBC 4.41 Hgb 14.6 Hct 44.6 MCV 101.1 H MCH 33.1 MCHC 32.7 RDW 13.8 Plt Count 236 D MPV 8.1 D Sodium 127 L Potassium 5.2 H Chloride 94 L Carbon Dioxide 19 L Anion Gap 14 BUN 4.1 L Creatinine 0.7 Est GFR (CKD-EPI)AfAm 114.78 Est GFR (CKD-EPI)NonAf 99.03 Random Glucose 95 Calcium 9.9 Total Bilirubin 1.3 H AST 27 ALT 17 Alkaline Phosphatase 119 H Total Protein 9.1 H Albumin 4.4 Syphilis Serology Non-reactive COVID-19 (TAVON) 06/03/20 06/05/20 15:30 07:00 WBC RBC Hgb Hct MCV MCH MCHC RDW Plt Count MPV Sodium 134 L Potassium 4.9 Chloride 100 Carbon Dioxide 27 Anion Gap 7 L BUN 18.0 Creatinine 1.1 Est GFR (CKD-EPI)AfAm 81.22 Est GFR (CKD-EPI)NonAf 70.07 Random Glucose 95 Calcium 9.1 Total Bilirubin 0.7 AST 24 ALT 16 Alkaline Phosphatase 89 Total Protein 7.7 Albumin 3.8 Syphilis Serology COVID-19 (TAVON) Not detected aaox3 ambulating no acute distress Assessment: 06/06/20 11:29 withdrawal sx Plan: continue detox
[2020-06-06] MEDS: MULTIVITAMINS (DAILY MVI) TABLET (FP) PO SCH (12:24)
[2020-06-06] MEDS: MELATONIN 5 MG TABLETS PO SCH (23:06)
[2020-06-06] MEDS: THIAMINE HCL 100 MG TABLET (FP) PO SCH (23:07)
[2020-06-06] MEDS: QUEtiapine FUMARATE 100 MG TABLET (FP) PO SCH (23:07)
--- NOTE | 2020-06-07 00:35 | PN ---
Sandra Progress Note Note: Patient's nurse Ms. Janice Montoya notified me that patient is confused and she held the Seroquel and Librium. However, she reports that patient is sleeping at this time. Vital Signs Temperature 98.6 F 06/06/20 21:03 Pulse Rate 105 H 06/06/20 21:03 Respiratory Rate 18 06/06/20 21:03 Blood Pressure 146/83 06/06/20 21:03 O2 Sat by Pulse Oximetry (%) 95 06/06/20 21:03 Action: Ammonia Level ordered
[2020-06-07] MEDS: IBUPROFEN 400 MG TABLET (FP) PO PRN (01:17)
[2020-06-07] MEDS: chlordiazePOXIDE HCL 10 MG CAPSULE PO SCH ×2 (06:06→18:04)
--- NOTE | 2020-06-07 09:31 | PN ---
OBDULIO Progress Note Note: Follow up consult requested out of concern that Seroquel is too sedating. Patient is on Seroquel 100 mg/hs. Will decrease Seroquel dosage to 50 mg/hs
[2020-06-07] MEDS: METHADONE HCL 10 MG TABLET PO SCH (10:43)
[2020-06-07] MEDS: amLODIPine BESYLATE 5 MG TABLET (FP) PO SCH (10:44)
[2020-06-07] MEDS: PRENATAL VITAMINS W/ FOLIC ACID TABLET (FP) PO SCH (10:44)
[2020-06-07] MEDS: FERROUS SO4 325 MG TABLET (FP) PO SCH (10:44)
[2020-06-07] MEDS: NICOTINE 7 MG/24 HOURS TOPICAL PATCH TD SCH (10:45)
[2020-06-07] MEDS ORDERED: LACTULOSE 20 GM/30 ML UDC (FOR ORAL USE ONLY) PO ONE (10:53)
--- NOTE | 2020-06-07 11:58 | PN ---
S CIWA - CIWA Score Nausea/Vomitin-No Nausea/No Vomiting Muscle Tremors: 1-None Visible, but [place] Anxiety: 2 Agitation: 2 Paroxysmal Sweats: No Perspiration Orientation: 0-Oriented Tacttile Disturbances: 0-None Auditory Disturbances: 0-None Visual Disturbances: 0-None Headache: 1-Very Mild CIWA-Ar Total Score: 6 BHS Progress Note (SOAP) Subjective: alert,oriented,feel weak,anxious,interrupted sleep,ambulation on the unit Objective: 06/07/20 11:51 Vital Signs Temperature 97.8 F 06/07/20 08:48 Pulse Rate 89 06/07/20 08:48 Respiratory Rate 16 06/07/20 08:48 Blood Pressure 94/53 L 06/07/20 08:48 O2 Sat by Pulse Oximetry (%) 95 06/07/20 08:48 06/07/20 11:52 Laboratory Results - last 24 hr 06/07/20 07:35 Ammonia 56.20 H Assessment: 06/07/20 11:52 withdrawal symptom high ammonia level 56.2 Plan: continue detox librium regimen,lactulose 20 grams po bid,close monitoring,repeat bmp,ammonia level in am
[2020-06-07] MEDS: THIAMINE HCL 100 MG TABLET (FP) PO SCH (22:11)
[2020-06-07] MEDS: LACTULOSE 20 GM/30 ML UDC (FOR ORAL USE ONLY) PO SCH (22:11)
[2020-06-07] MEDS: MELATONIN 5 MG TABLETS PO SCH (22:11)
[2020-06-07] MEDS: QUEtiapine FUMARATE 50 MG TABLET PO SCH (22:11)
[2020-06-08] MEDS ORDERED: chlordiazePOXIDE HCL 10 MG CAPSULE PO ONE (05:00)
[2020-06-08 09:56] LABS: POTASSIUM 4.7 mmol/L (3.5-5.1)
[2020-06-08 10:01] LABS: BLOOD UREA NITROGEN 11.8 mg/dL (7-18); CREATININE 0.9 mg/dL (0.55-1.3)
[2020-06-08] MEDS: FERROUS SO4 325 MG TABLET (FP) PO SCH (11:02)
[2020-06-08] MEDS: NICOTINE 7 MG/24 HOURS TOPICAL PATCH TD SCH (11:02)
[2020-06-08] MEDS: METHADONE HCL 10 MG TABLET PO SCH (11:02)
[2020-06-08] MEDS: LACTULOSE 20 GM/30 ML UDC (FOR ORAL USE ONLY) PO SCH ×4 (11:03→22:32)
[2020-06-08] MEDS: PRENATAL VITAMINS W/ FOLIC ACID TABLET (FP) PO SCH (11:03)
[2020-06-08] MEDS: amLODIPine BESYLATE 5 MG TABLET (FP) PO SCH (11:03)
[2020-06-08] MEDS: IBUPROFEN 400 MG TABLET (FP) PO PRN (12:34)
--- NOTE | 2020-06-08 15:57 | PN ---
S CIWA - CIWA Score Nausea/Vomitin-No Nausea/No Vomiting Muscle Tremors: 2 Anxiety: 1-Mildly Anxious Agitation: 1-Slight > Activity Paroxysmal Sweats: No Perspiration Orientation: 4-Disoriented Place/Person Tacttile Disturbances: 0-None Auditory Disturbances: 0-None Visual Disturbances: 1-Very Mild Sensitivity Headache: 0-None Present CIWA-Ar Total Score: 9 BHS Progress Note (SOAP) Subjective: Fatigue, Anxious. Objective: Patient A & O X 1 (Uncertain About Current Day/Date and about current location). Patient Observed Ambulating on Detox Unit Unassisted. In No Acute Distress. 06/08/20 15:52 Vital Signs Temperature 98.9 F 06/08/20 12:57 Pulse Rate 96 H 06/08/20 12:57 Respiratory Rate 16 06/08/20 12:57 Blood Pressure 119/73 06/08/20 12:57 O2 Sat by Pulse Oximetry (%) 96 06/08/20 12:57 Laboratory Tests 06/03/20 06/03/20 06/03/20 13:47 13:47 13:47 WBC 4.6 RBC 4.41 Hgb 14.6 Hct 44.6 MCV 101.1 H MCH 33.1 MCHC 32.7 RDW 13.8 Plt Count 236 D MPV 8.1 D Sodium 127 L Potassium 5.2 H Chloride 94 L Carbon Dioxide 19 L Anion Gap 14 BUN 4.1 L Creatinine 0.7 Est GFR (CKD-EPI)AfAm 114.78 Est GFR (CKD-EPI)NonAf 99.03 Random Glucose 95 Calcium 9.9 Total Bilirubin 1.3 H AST 27 ALT 17 Alkaline Phosphatase 119 H Ammonia Total Protein 9.1 H Albumin 4.4 Syphilis Serology Non-reactive COVID-19 ([facility]) 06/03/20 06/05/20 06/07/20 15:30 07:00 07:35 WBC RBC Hgb Hct MCV MCH MCHC RDW Plt Count MPV Sodium 134 L Potassium 4.9 Chloride 100 Carbon Dioxide 27 Anion Gap 7 L BUN 18.0 Creatinine 1.1 Est GFR (CKD-EPI)AfAm 81.22 Est GFR (CKD-EPI)NonAf 70.07 Random Glucose 95 Calcium 9.1 Total Bilirubin 0.7 AST 24 ALT 16 Alkaline Phosphatase 89 Ammonia 56.20 H Total Protein 7.7 Albumin 3.8 Syphilis Serology COVID-19 ([facility]) Not detected 06/08/20 06/08/20 07:30 07:30 WBC RBC Hgb Hct MCV MCH MCHC RDW Plt Count MPV Sodium 134 L Potassium 4.7 Chloride 96 L Carbon Dioxide 32 Anion Gap 6 L BUN 11.8 Creatinine 0.9 Est GFR (CKD-EPI)AfAm 103.51 Est GFR (CKD-EPI)NonAf 89.31 Random Glucose 96 Calcium 9.0 Total Bilirubin AST ALT Alkaline Phosphatase Ammonia 80.20 H Total Protein Albumin Syphilis Serology COVID-19 ([facility]) Lab results noted. Results of Repeat CMP and Ammonia levels noted. Significant increase in Ammonia (80.20) noted on repeat assessment. 06/08/20 15:53 Assessment: 06/08/20 15:54 WITHDRAWAL SYMPTOMS. HYPERAMMONEMIA. Plan: Continue Detox. Increase Daily Oral Water Intake. Increase Lactulose daily dosing frequency to QID for elevated Ammonia level noted on repeat. Patient initially schedule to be D/C'd from detox unit today. However, due to currently elevated Ammonia level, due to appearance of fatigue and confusion on part of Patient, and due to concern about Patient being able to get back to his [facility] Program ([place], [place]) prior to closing today, Patient to remain on Detox Unit for today. He will be assessed tomorrow AM prior to determination of Discharge Planning.
[2020-06-08] MEDS: MAG HYDROX/AL HYDROX/SIMETH 30 ML UNIT-DOSE CUP PO PRN (17:03)
[2020-06-08] MEDS: MELATONIN 5 MG TABLETS PO SCH (22:33)
[2020-06-08] MEDS: THIAMINE HCL 100 MG TABLET (FP) PO SCH (22:33)
[2020-06-08] MEDS: QUEtiapine FUMARATE 50 MG TABLET PO SCH (22:33)
[2020-06-09] MEDS: IBUPROFEN 400 MG TABLET (FP) PO PRN (07:24)
[2020-06-09] MEDS: LACTULOSE 20 GM/30 ML UDC (FOR ORAL USE ONLY) PO SCH ×4 (11:09→23:12)
[2020-06-09] MEDS: FERROUS SO4 325 MG TABLET (FP) PO SCH (11:09)
[2020-06-09] MEDS: NICOTINE 7 MG/24 HOURS TOPICAL PATCH TD SCH (11:09)
[2020-06-09] MEDS: METHADONE HCL 10 MG TABLET PO SCH (11:09)
[2020-06-09] MEDS: PRENATAL VITAMINS W/ FOLIC ACID TABLET (FP) PO SCH (11:10)
--- NOTE | 2020-06-09 14:06 | PN ---
S CIWA - CIWA Score Nausea/Vomitin-No Nausea/No Vomiting Muscle Tremors: None Anxiety: 2 Agitation: 2 Paroxysmal Sweats: No Perspiration Orientation: 0-Oriented Tacttile Disturbances: 0-None Auditory Disturbances: 0-None Visual Disturbances: 0-None Headache: 0-None Present CIWA-Ar Total Score: 4 BHS Progress Note (SOAP) Subjective: Chills, headache; patient denies any diarrhea though receiving lactulose Objective: 06/09/20 14:02 Last Vital Signs Temp Pulse Resp BP Pulse Ox 97.3 F L 87 18 101/57 L 96 06/09/20 09:22 06/09/20 09:22 06/09/20 09:22 06/09/20 09:22 06/09/20 09:22 Laboratory Tests 06/03/20 06/03/20 06/03/20 13:47 13:47 13:47 WBC 4.6 RBC 4.41 Hgb 14.6 Hct 44.6 MCV 101.1 H MCH 33.1 MCHC 32.7 RDW 13.8 Plt Count 236 D MPV 8.1 D Sodium 127 L Potassium 5.2 H Chloride 94 L Carbon Dioxide 19 L Anion Gap 14 BUN 4.1 L Creatinine 0.7 Est GFR (CKD-EPI)AfAm 114.78 Est GFR (CKD-EPI)NonAf 99.03 Random Glucose 95 Calcium 9.9 Total Bilirubin 1.3 H AST 27 ALT 17 Alkaline Phosphatase 119 H Ammonia Total Protein 9.1 H Albumin 4.4 Syphilis Serology Non-reactive COVID-19 ([facility]) 06/03/20 06/05/20 06/07/20 15:30 07:00 07:35 WBC RBC Hgb Hct MCV MCH MCHC RDW Plt Count MPV Sodium 134 L Potassium 4.9 Chloride 100 Carbon Dioxide 27 Anion Gap 7 L BUN 18.0 Creatinine 1.1 Est GFR (CKD-EPI)AfAm 81.22 Est GFR (CKD-EPI)NonAf 70.07 Random Glucose 95 Calcium 9.1 Total Bilirubin 0.7 AST 24 ALT 16 Alkaline Phosphatase 89 Ammonia 56.20 H Total Protein 7.7 Albumin 3.8 Syphilis Serology COVID-19 ([facility]) Not detected 06/08/20 06/08/20 07:30 07:30 WBC RBC Hgb Hct MCV MCH MCHC RDW Plt Count MPV Sodium 134 L Potassium 4.7 Chloride 96 L Carbon Dioxide 32 Anion Gap 6 L BUN 11.8 Creatinine 0.9 Est GFR (CKD-EPI)AfAm 103.51 Est GFR (CKD-EPI)NonAf 89.31 Random Glucose 96 Calcium 9.0 Total Bilirubin AST ALT Alkaline Phosphatase Ammonia 80.20 H Total Protein Albumin Syphilis Serology COVID-19 ([facility]) Labs reviewed: ammonia level 80.20 >>56.20 Assessment: 06/09/20 14:03 Withdrawal sxs Noted with hyperammonemia Plan: Continue detox Encourage PO water intake Hyperammonemia: patient denies any diarrhea, encourage to take lactulose and to drink more water, repeat ammonia level in AM Consider transferring patient to ER if no improvement in ammonia level
[2020-06-09] MEDS: amLODIPine BESYLATE 5 MG TABLET (FP) PO SCH (15:28)
[2020-06-09] MEDS: QUEtiapine FUMARATE 50 MG TABLET PO SCH (23:12)
[2020-06-09] MEDS: THIAMINE HCL 100 MG TABLET (FP) PO SCH (23:12)
[2020-06-09] MEDS: MELATONIN 5 MG TABLETS PO SCH (23:12)
[2020-06-10] MEDS: IBUPROFEN 400 MG TABLET (FP) PO PRN (09:07)
[2020-06-10 09:34] VITALS: BP 118/79; PULSE 118; TEMP 97.1
--- NOTE | 2020-06-10 10:13 | PN ---
[facility] CIWA - CIWA Score Nausea/Vomitin-No Nausea/No Vomiting Muscle Tremors: None Anxiety: 1-Mildly Anxious Agitation: 0-Normal Activity Paroxysmal Sweats: No Perspiration Orientation: 0-Oriented Tacttile Disturbances: 0-None Auditory Disturbances: 0-None Visual Disturbances: 0-None Headache: 0-None Present CIWA-Ar Total Score: 1 S Progress Note (SOAP) Subjective: alerted,oriented x 3,no complaint Objective: 06/10/20 10:09 Vital Signs Temperature 97.1 F L 06/10/20 08:58 Pulse Rate 118 H 06/10/20 08:58 Respiratory Rate 17 06/10/20 08:58 Blood Pressure 118/79 06/10/20 08:58 O2 Sat by Pulse Oximetry (%) 95 06/10/20 08:58 detox completed,no withdrawal symptom 06/10/20 10:10 Laboratory Last Values WBC 4.6 K/mm3 (4.0-10.0) 06/03/20 13:47 RBC 4.41 M/mm3 (4.00-5.60) 06/03/20 13:47 Hgb 14.6 GM/dL (11.7-16.9) 06/03/20 13:47 Hct 44.6 % (35.4-49) 06/03/20 13:47 MCV 101.1 fl (80-96) H 06/03/20 13:47 MCH 33.1 pg (25.7-33.7) 06/03/20 13:47 MCHC 32.7 g/dl (32.0-35.9) 06/03/20 13:47 RDW 13.8 % (11.9-15.9) 06/03/20 13:47 Plt Count 236 K/MM3 (134-434) D 06/03/20 13:47 MPV 8.1 fl (7.5-11.1) D 06/03/20 13:47 Sodium 134 mmol/L (136-145) L 06/08/20 07:30 Potassium 4.7 mmol/L (3.5-5.1) 06/08/20 07:30 Chloride 96 mmol/L (98-107) L 06/08/20 07:30 Carbon Dioxide 32 mmol/L (21-32) 06/08/20 07:30 Anion Gap 6 MMOL/L (8-16) L 06/08/20 07:30 BUN 11.8 mg/dL (7-18) 06/08/20 07:30 Creatinine 0.9 mg/dL (0.55-1.3) 06/08/20 07:30 Est GFR (CKD-EPI)AfAm 103.51 06/08/20 07:30 Est GFR (CKD-EPI)NonAf 89.31 06/08/20 07:30 Random Glucose 96 mg/dL (74-106) 06/08/20 07:30 Calcium 9.0 mg/dL (8.5-10.1) 06/08/20 07:30 Total Bilirubin 0.7 mg/dL (0.2-1) 06/05/20 07:00 AST 24 U/L (15-37) 06/05/20 07:00 ALT 16 U/L (13-61) 06/05/20 07:00 Alkaline Phosphatase 89 U/L (45-117) 06/05/20 07:00 Ammonia 80.20 umol/L (11-32) H 06/08/20 07:30 Total Protein 7.7 g/dl (6.4-8.2) 06/05/20 07:00 Albumin 3.8 g/dl (3.4-5.0) 06/05/20 07:00 Syphilis Serology Non-reactive (NONREACTIVE) 06/03/20 13:47 COVID-19 ([facility]) Not detected (Not Detected) 06/03/20 15:30 repeat ammonia level pending 06/10/20 10:11 on lactulose 20 grams po qid Assessment: 06/10/20 10:11 no withdrawal symptom Plan: stable for discharge today to rehab
--- NOTE | 2020-06-10 10:13 | DS ---
[facility] Detox Discharge Summary Admission Date: 06/03/20 Discharge Date: 06/10/20 - History Present History: Alcohol Dependence, MMTP Additional Comments: alert,oriented x 3 ambulation on the unit lung clear on auscultation bilaterally abdomen soft,no pain,no tenderness no edema of legs detox completed,no withdrawal symptom stable for discharge today follow up with [facility] arrangement total time of discharge spending 35 minutes patient has high ammonia level on lactulose 20 grams po qid ,repeat ammonia level pending,will monitor patient closely in rehab patient has been on methadone maintenance at 30 mgs po daily due to alter mental status,patient is dong well will maintain methadone at 30 mgs/day Pertinent Past History: hypertension hepatitis c anemia - Physical Exam Results Vital Signs: Vital Signs Temperature 97.1 F L 06/10/20 08:58 Pulse Rate 118 H 06/10/20 08:58 Respiratory Rate 17 06/10/20 08:58 Blood Pressure 118/79 06/10/20 08:58 O2 Sat by Pulse Oximetry (%) 95 06/10/20 08:58 Pertinent Admission Physical Exam Findings: withdrawal signs and symptom Vital Signs Temperature 97.1 F L 06/10/20 08:58 Pulse Rate 118 H 06/10/20 08:58 Respiratory Rate 17 06/10/20 08:58 Blood Pressure 118/79 06/10/20 08:58 O2 Sat by Pulse Oximetry (%) 95 06/10/20 08:58 Laboratory Last Values WBC 4.6 K/mm3 (4.0-10.0) 06/03/20 13:47 RBC 4.41 M/mm3 (4.00-5.60) 06/03/20 13:47 Hgb 14.6 GM/dL (11.7-16.9) 06/03/20 13:47 Hct 44.6 % (35.4-49) 06/03/20 13:47 MCV 101.1 fl (80-96) H 06/03/20 13:47 MCH 33.1 pg (25.7-33.7) 06/03/20 13:47 MCHC 32.7 g/dl (32.0-35.9) 06/03/20 13:47 RDW 13.8 % (11.9-15.9) 06/03/20 13:47 Plt Count 236 K/MM3 (134-434) D 06/03/20 13:47 MPV 8.1 fl (7.5-11.1) D 06/03/20 13:47 Sodium 134 mmol/L (136-145) L 06/08/20 07:30 Potassium 4.7 mmol/L (3.5-5.1) 06/08/20 07:30 Chloride 96 mmol/L (98-107) L 06/08/20 07:30 Carbon Dioxide 32 mmol/L (21-32) 06/08/20 07:30 Anion Gap 6 MMOL/L (8-16) L 06/08/20 07:30 BUN 11.8 mg/dL (7-18) 06/08/20 07:30 Creatinine 0.9 mg/dL (0.55-1.3) 06/08/20 07:30 Est GFR (CKD-EPI)AfAm 103.51 06/08/20 07:30 Est GFR (CKD-EPI)NonAf 89.31 06/08/20 07:30 Random Glucose 96 mg/dL (74-106) 06/08/20 07:30 Calcium 9.0 mg/dL (8.5-10.1) 06/08/20 07:30 Total Bilirubin 0.7 mg/dL (0.2-1) 06/05/20 07:00 AST 24 U/L (15-37) 06/05/20 07:00 ALT 16 U/L (13-61) 06/05/20 07:00 Alkaline Phosphatase 89 U/L (45-117) 06/05/20 07:00 Ammonia 80.20 umol/L (11-32) H 06/08/20 07:30 Total Protein 7.7 g/dl (6.4-8.2) 06/05/20 07:00 Albumin 3.8 g/dl (3.4-5.0) 06/05/20 07:00 Syphilis Serology Non-reactive (NONREACTIVE) 06/03/20 13:47 COVID-19 ([facility]) Not detected (Not Detected) 06/03/20 15:30 repeat ammonia pending on lactulose 20 grams po qid - Treatment Hospital Course: Detox Protocol Followed, Detoxed Safely, Responded well, Discharged Condition Good, Rehab Referral Accepted Patient has Accepted a [facility] Referral [facility] - Medication Discharge Medications: Ambulatory Orders Methadone [Dolophine -] 70 mg PO DAILY 06/03/20 - Diagnosis (1) Alcohol dependence with uncomplicated withdrawal Current Visit: Yes Status: Acute (2) Hyperammonemia Current Visit: Yes Status: Acute (3) Bipolar disorder Current Visit: Yes Status: Chronic Qualifiers: Active/Remission status: remission status unspecified Qualified Code(s): F31.9 - Bipolar disorder, unspecified (4) Hepatitis C Current Visit: Yes Status: Chronic Qualifiers: Viral hepatitis chronicity: chronic Hepatic coma status: without hepatic coma Qualified Code(s): B18.2 - Chronic viral hepatitis C (5) Hypertension Current Visit: Yes Status: Chronic Qualifiers: Hypertension type: essential hypertension Qualified Code(s): I10 - Essential (primary) hypertension (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
[2020-06-10] MEDS: METHADONE HCL 10 MG TABLET PO SCH (10:24)
[2020-06-10] MEDS: FERROUS SO4 325 MG TABLET (FP) PO SCH (10:24)
[2020-06-10] MEDS: LACTULOSE 20 GM/30 ML UDC (FOR ORAL USE ONLY) PO SCH (10:24)
[2020-06-10] MEDS: amLODIPine BESYLATE 5 MG TABLET (FP) PO SCH (10:24)
[2020-06-10] MEDS: NICOTINE 7 MG/24 HOURS TOPICAL PATCH TD SCH (10:25)
[2020-06-10] MEDS: PRENATAL VITAMINS W/ FOLIC ACID TABLET (FP) PO SCH (10:27)
== END 2020-06-10 12:32 | disposition other institution (70) | DRG 773 ==
LOC: YASAS 12:14 → Y6N 15:09
PROVIDERS: ADMIT Allergy & Immunology; ATTEND Allergy & Immunology
PROC: HZ2ZZZZ Detoxification Services for Substance Abuse Treatment (ICD-10-PCS; principal; 2020-06-03)
DX: F10.230 Alcohol dependence with withdrawal, uncomplicated (principal); F11.20 Opioid dependence, uncomplicated; F17.210 Nicotine dependence, cigarettes, uncomplicated; F10.282 Alcohol dependence with alcohol-induced sleep disorder; F10.24 Alcohol dependence with alcohol-induced mood disorder; F19.24 Other psychoactive substance dependence with psychoactive substance-induced mood disorder; F31.9 Bipolar disorder, unspecified; E72.20 Disorder of urea cycle metabolism, unspecified; D50.9 Iron deficiency anemia, unspecified; I10 Essential (primary) hypertension; B18.2 Chronic viral hepatitis C; G47.00 Insomnia, unspecified; Z62.810 Personal history of physical and sexual abuse in childhood; Z86.19 Personal history of other infectious and parasitic diseases; S00.11XD Contusion of right eyelid and periocular area, subsequent encounter; Y04.8XXD Assault by other bodily force, subsequent encounter
CPT/HCPCS: 36415; 80048; 80053; 82140; 85027; 86780; U0003

== ENCOUNTER 2020-08-11 13:05 | Inpatient (IN) | payer OTHER ==
[2020-08-11 17:39] VITALS: BMI 18.8
[2020-08-11] MEDS ORDERED: MENTHOL/PHENOL 1 EACH UD MM PRN (18:01)
[2020-08-11] MEDS ORDERED: MAGNESIUM HYDROX 2400MG/30ML ORAL SUSPENSION 30 ML CUP PO PRN (18:01)
[2020-08-11] MEDS ORDERED: BISMUTH SUBSALICYLATE 524 MG/30 ML UD PO PRN (18:01)
[2020-08-11] MEDS ORDERED: NICOTINE POLACRILEX 2 MG GUM BUC PRN (18:01)
[2020-08-11] MEDS ORDERED: MAG HYDROX/AL HYDROX/SIMETH 30 ML UNIT-DOSE CUP PO PRN (18:01)
[2020-08-11] MEDS ORDERED: MAGNESIUM CITRATE 300 ML BOTTLE PO PRN (18:01)
[2020-08-11] MEDS ORDERED: ONDANSETRON *ODT* 4 MG TABLET SL PRN (18:01)
[2020-08-11] MEDS: LORazepam 1 MG TABLET PO PRN (20:50)
[2020-08-11] MEDS: LACTULOSE 20 GM/30 ML UDC (FOR ORAL USE ONLY) PO SCH (22:34)
[2020-08-11] MEDS: THIAMINE HCL 100 MG TABLET (FP) PO SCH (22:34)
[2020-08-11] MEDS: LORazepam 2 MG TABLET PO SCH (22:34)
[2020-08-12] MEDS: LORazepam 2 MG TABLET PO SCH ×4 (05:57→22:44)
[2020-08-12] MEDS: PRENATAL VITAMINS W/ FOLIC ACID TABLET (FP) PO SCH (10:11)
[2020-08-12] MEDS: LACTULOSE 20 GM/30 ML UDC (FOR ORAL USE ONLY) PO SCH ×4 (10:11→22:44)
[2020-08-12] MEDS: NICOTINE 7 MG/24 HOURS TOPICAL PATCH TD SCH (10:11)
[2020-08-12 10:37] LABS: HEMATOCRIT 40.4 % (35.4-49); HEMOGLOBIN 13.3 GM/dL (11.7-16.9); MEAN CELL VOLUME 103.1 fl (80-96); MEAN PLT VOLUME 9.4 fl (7.5-11.1); PLATELET COUNT 177 K/MM3 (134-434); RBC 3.92 M/mm3 (4.00-5.60); RDW 16.1 % (11.9-15.9)
[2020-08-12 10:40] LABS: POTASSIUM 4.5 mmol/L (3.5-5.1)
[2020-08-12 10:41] LABS: CALCIUM 8.9 mg/dL (8.5-10.1)
[2020-08-12 10:43] LABS: ALBUMIN 3.4 g/dl (3.4-5.0)
[2020-08-12 10:46] LABS: CREATININE 0.8 mg/dL (0.55-1.3)
[2020-08-12 10:47] LABS: BILIRUBIN,TOTAL 0.4 mg/dL (0.2-1)
[2020-08-12 10:48] LABS: TOT PROT 6.8 g/dl (6.4-8.2)
[2020-08-12] MEDS: LORazepam 1 MG TABLET PO PRN (14:15)
[2020-08-12] MEDS: IBUPROFEN 400 MG TABLET (FP) PO PRN (14:40)
[2020-08-12] MEDS: THIAMINE HCL 100 MG TABLET (FP) PO SCH (22:45)
[2020-08-13] MEDS: LORazepam 1 MG TABLET PO SCH ×4 (06:42→22:50)
[2020-08-13] MEDS: NICOTINE 7 MG/24 HOURS TOPICAL PATCH TD SCH (10:35)
[2020-08-13] MEDS: LACTULOSE 20 GM/30 ML UDC (FOR ORAL USE ONLY) PO SCH ×4 (10:35→22:50)
[2020-08-13] MEDS: amLODIPine BESYLATE 5 MG TABLET (FP) PO SCH (10:36)
[2020-08-13] MEDS: PRENATAL VITAMINS W/ FOLIC ACID TABLET (FP) PO SCH (10:36)
[2020-08-13] MEDS: THIAMINE HCL 100 MG TABLET (FP) PO SCH (22:50)
[2020-08-13] MEDS: MELATONIN 5 MG TABLETS PO PRN (22:51)
[2020-08-14] MEDS ORDERED: LORazepam 0.5 MG TABLET PO PRN
[2020-08-14] MEDS: LORazepam 0.5 MG TABLET PO SCH ×4 (05:44→22:23)
[2020-08-14] MEDS: LACTULOSE 20 GM/30 ML UDC (FOR ORAL USE ONLY) PO SCH ×4 (10:22→22:23)
[2020-08-14] MEDS: amLODIPine BESYLATE 5 MG TABLET (FP) PO SCH (10:26)
[2020-08-14] MEDS: NICOTINE 7 MG/24 HOURS TOPICAL PATCH TD SCH (10:26)
[2020-08-14] MEDS: PRENATAL VITAMINS W/ FOLIC ACID TABLET (FP) PO SCH (10:26)
[2020-08-14] MEDS: IBUPROFEN 400 MG TABLET (FP) PO PRN (20:43)
[2020-08-14] MEDS: THIAMINE HCL 100 MG TABLET (FP) PO SCH (22:23)
[2020-08-14] MEDS: MELATONIN 5 MG TABLETS PO PRN (22:23)
[2020-08-15] MEDS ORDERED: LORazepam 0.5 MG TABLET PO ONE (05:00)
[2020-08-15] MEDS: IBUPROFEN 400 MG TABLET (FP) PO PRN (08:54)
[2020-08-15 09:01] VITALS: BP 138/86; PULSE 71; TEMP 98.6
== END 2020-08-15 09:04 | disposition short-term general hospital (02) | DRG 773 ==
LOC: YASAS 13:05 → Y6N 19:09
PROVIDERS: ADMIT Allergy & Immunology; ATTEND Allergy & Immunology
PROC: HZ2ZZZZ Detoxification Services for Substance Abuse Treatment (ICD-10-PCS; principal; 2020-08-11)
DX: F10.230 Alcohol dependence with withdrawal, uncomplicated (principal); F10.280 Alcohol dependence with alcohol-induced anxiety disorder; F10.282 Alcohol dependence with alcohol-induced sleep disorder; F11.20 Opioid dependence, uncomplicated; F17.210 Nicotine dependence, cigarettes, uncomplicated; F19.24 Other psychoactive substance dependence with psychoactive substance-induced mood disorder; F31.9 Bipolar disorder, unspecified; I10 Essential (primary) hypertension; D50.9 Iron deficiency anemia, unspecified; G47.00 Insomnia, unspecified; E72.20 Disorder of urea cycle metabolism, unspecified; R41.82 Altered mental status, unspecified; Z86.19 Personal history of other infectious and parasitic diseases
CPT/HCPCS: 36415; 80053; 82140; 85027; 86780; C9803; U0003

== ENCOUNTER 2020-08-15 09:25 | Inpatient (IN) | payer OTHER ==
[2020-08-15 09:46] VITALS: BMI 20.9
[2020-08-15] MEDS ORDERED: LACTULOSE 20 GM/30 ML UDC (FOR ORAL USE ONLY) PO ONE (09:54)
[2020-08-15] MEDS ORDERED: LACTULOSE 20 GM/30 ML UDC (FOR ORAL USE ONLY) ONE ×2 (10:09→15:13)
[2020-08-15 10:32] LABS: BASO % 0.7 % (0-2.0); EOS % 1.6 % (0-4.5); HEMATOCRIT 43.2 % (35.4-49); HEMOGLOBIN 13.9 GM/dL (11.7-16.9); LYMPH % 10.1 % (8-40); MCH 32.6 pg (25.7-33.7); MCHC 32.3 g/dl (32.0-35.9); MEAN CELL VOLUME 101.1 fl (80-96); MEAN PLT VOLUME 8.5 fl (7.5-11.1); NEUT % 66.6 % (42.8-82.8); PLATELET COUNT 191 K/MM3 (134-434); RBC 4.27 M/mm3 (4.00-5.60); RDW 15.7 % (11.9-15.9); WHITE BLOOD COUNT 6.1 K/mm3 (4.0-10.0)
[2020-08-15 10:47] LABS: ALBUMIN 3.3 g/dl (3.4-5.0); BLOOD UREA NITROGEN 6.8 mg/dL (7-18); CALCIUM 9.1 mg/dL (8.5-10.1)
[2020-08-15 10:50] LABS: CREATININE 0.7 mg/dL (0.55-1.3)
[2020-08-15 10:53] LABS: BILIRUBIN,TOTAL 0.3 mg/dL (0.2-1); TOT PROT 7.8 g/dl (6.4-8.2)
[2020-08-15 11:05] LABS: POTASSIUM 7.8 mmol/L (3.5-5.1)
[2020-08-15 11:35] LABS: ANISOCYTOSIS 0; MACROCYTOSIS 0; PLATELET ESTIMATE NORMAL
[2020-08-15 13:17] LABS: POTASSIUM 4.3 mmol/L (3.5-5.1)
[2020-08-15 13:19] LABS: BLOOD UREA NITROGEN 8.1 mg/dL (7-18); CALCIUM 9.3 mg/dL (8.5-10.1)
[2020-08-15] MEDS ORDERED: KETOROLAC TROMETHAMINE 30 MG/1 ML VIAL IVPUSH ONE (13:20)
[2020-08-15 13:23] LABS: CREATININE 0.8 mg/dL (0.55-1.3)
[2020-08-15] MEDS ORDERED: KETOROLAC TROMETHAMINE 15 MG/ML VIAL ONE (13:26)
[2020-08-15 13:29] LABS: PH,URINE 7.5 (5.0-8.0); URINE APPEARANCE CLEAR; URINE BILIRUBIN NEGATIVE (NEGATIVE); URINE COLOR YELLOW; URINE GLUCOSE (UA) NEGATIVE (NEGATIVE); URINE KETONE NEGATIVE (NEGATIVE); URINE LEUK ESTERASE NEGATIVE (NEGATIVE); URINE NITRITE NEGATIVE (NEGATIVE); URINE PROTEIN NEGATIVE (NEGATIVE); URINE UROBILINOGEN 0.2 mg/dL (0.2-1.0)
[2020-08-15] MEDS ORDERED: MORPHINE SULFATE 2 MG/ML VIAL IVPUSH PRN (14:47)
[2020-08-15 15:04] LABS: COCAINE, UR NEGATIVE ng/ml (CUTOFF=300); METHADONE, UR NEGATIVE ng/ml (CUTOFF=300); OPIATES, URI NEGATIVE ng/ml (CUTOFF=300); URINE BARBITURATES NEGATIVE ng/ml (CUTOFF=200)
[2020-08-15 15:06] LABS: PHENCYCLIDINE,URINE NEGATIVE ng/ml (CUTOFF=25); URINE AMPHETAMINES NEGATIVE ng/ml (CUTOFF=500)
[2020-08-15] MEDS ORDERED: HEPARIN NA (PORCINE) 5,000 UNITS/ML 1ML VIAL ONE (15:13)
[2020-08-15] MEDS: HEPARIN NA (PORCINE) 5,000 UNITS/ML 1ML VIAL SQ SCH ×2 (15:18→23:02)
[2020-08-15] MEDS: LACTULOSE 20 GM/30 ML UDC (FOR ORAL USE ONLY) PO SCH ×3 (15:18→23:02)
[2020-08-15 15:23] LABS: URINE BENZODIAZEPINES POSITIVE ng/ml (CUTOFF=200)
[2020-08-15] MEDS: ACETAMINOPHEN 325 MG TABLET (FP) PO PRN (20:30)
[2020-08-15] MEDS: oxyCODONE HCL 5 MG TABLET PO PRN (20:30)
[2020-08-15] MEDS ORDERED: QUEtiapine FUMARATE 50 MG TABLET PO SCH (22:00)
[2020-08-16] MEDS: oxyCODONE HCL 5 MG TABLET PO PRN ×3 (02:01→16:07)
[2020-08-16] MEDS: ACETAMINOPHEN 325 MG TABLET (FP) PO PRN ×3 (02:02→14:59)
[2020-08-16] MEDS: LACTULOSE 20 GM/30 ML UDC (FOR ORAL USE ONLY) PO SCH ×3 (02:03→10:51)
[2020-08-16] MEDS: HEPARIN NA (PORCINE) 5,000 UNITS/ML 1ML VIAL SQ SCH (06:29)
[2020-08-16 09:40] LABS: HEMATOCRIT 43.9 % (35.4-49); HEMOGLOBIN 14.4 GM/dL (11.7-16.9); MCH 33.4 pg (25.7-33.7); MCHC 32.8 g/dl (32.0-35.9); MEAN PLT VOLUME 9.5 fl (7.5-11.1); PLATELET COUNT 192 K/MM3 (134-434); RDW 15.6 % (11.9-15.9); WHITE BLOOD COUNT 6.7 K/mm3 (4.0-10.0)
[2020-08-16] MEDS ORDERED: traMADol HCL 50 MG TABLET PO PRN (09:44)
[2020-08-16 09:46] LABS: INR 0.9 (0.83-1.09); PROTHROMBIN TIME (PATIENT) 11.1 SEC (9.7-13.0)
[2020-08-16 09:52] LABS: POTASSIUM 4.2 mmol/L (3.5-5.1)
[2020-08-16 09:54] LABS: CALCIUM 8.9 mg/dL (8.5-10.1)
[2020-08-16 09:55] LABS: ALBUMIN 3.5 g/dl (3.4-5.0); BLOOD UREA NITROGEN 11.8 mg/dL (7-18); MAGNESIUM 2.1 mg/dL (1.8-2.4)
[2020-08-16 09:58] LABS: PHOSPHOROUS 4.3 mg/dL (2.5-4.9)
[2020-08-16 10:00] LABS: BILIRUBIN,TOTAL 0.2 mg/dL (0.2-1); TOT PROT 7.2 g/dl (6.4-8.2)
[2020-08-16] MEDS ORDERED: METHADONE HCL 10 MG TABLET PO ONE (10:00)
[2020-08-16] MEDS ORDERED: amLODIPine BESYLATE 5 MG TABLET (FP) PO SCH (10:00)
[2020-08-16 14:40] VITALS: BP 147/83; PULSE 114; TEMP 98.5
== END 2020-08-16 17:01 | disposition home or self-care (01) | DRG 279 ==
LOC: JER 09:25 → JERBED 14:28 → J6S 16:05
PROVIDERS: ADMIT Internal Medicine; ATTEND Student in an Organized Health Care Education/Training Program
DX: K72.90 Hepatic failure, unspecified without coma (principal); F11.20 Opioid dependence, uncomplicated; D64.9 Anemia, unspecified; F10.20 Alcohol dependence, uncomplicated; I10 Essential (primary) hypertension; S02.85XA Fracture of orbit, unspecified, initial encounter for closed fracture; S02.40EA Zygomatic fracture, right side, initial encounter for closed fracture; Y08.89XA Assault by other specified means, initial encounter; Y93.89 Activity, other specified; Y92.89 Other specified places as the place of occurrence of the external cause; Y99.8 Other external cause status; T42.4X5A Adverse effect of benzodiazepines, initial encounter
CPT/HCPCS: 36415; 70450-TC; 70486-TC; 71045-TC-FY; 80048; 80053; 80307; 81003; 82140; 83735; 84100; 85025; 85027; 85610; 93005; 93010; 99285-25; J1644